=== PATIENT | male | born 1955 | race Caucasian/White ===

== ENCOUNTER → 2019-10-20 16:08 | Outpatient (CLI) | payer OTHER, SELFPAY ==
[2019-10-20 17:52] LABS: Anion Gap 3 (5-15); BUN 34 mg/dL (7-18); BUN/Creat Ratio 32.7 RATIO (10-20); Calcium,Total 8.9 mg/dL (8.5-10.1); Chloride 105 mmol/L (98-107); Creatinine, Serum 1.04 mg/dL (0.70-1.30); EST Glomerular Filtration Rate 76 mL/min (>60); Est Glom Filt Rate - Afr Amer 92 mL/min (>60); Glucose 87 mg/dL (74-106); Magnesium 2.2 mg/dL (1.6-2.6); Potassium 4.3 mmol/L (3.5-5.1); Sodium Level 138 mmol/L (136-145)
== END ==
DX: I50.32 Chronic diastolic (congestive) heart failure (principal)
CPT/HCPCS: 36415; 80048; 83735

== ENCOUNTER → 2019-10-29 15:12 | Outpatient (CLI) | payer OTHER, SELFPAY ==
[2019-10-29 16:12] LABS: Hematocrit 51.3 % (40-54); Hemoglobin 16.3 g/dL (13.0-16.5); Mean Corp Hgb Conc 31.8 g/dL (32-36); Mean Corpuscular Hgb 29.8 pg (27.0-32.0); Mean Corpuscular Volume 93.8 fL (80-94); Mean Platelet Vol. 10.5 fl (6.2-12.0); Platelet Count 266 K/mm3 (150-450); RBC Distribution Width CV 13.3 % (11.6-14.6); RBC Distribution Width SD 46.5 fl (35.1-43.9); Red Blood Count 5.47 M/mm3 (4.6-6.2)
== END ==
DX: I50.32 Chronic diastolic (congestive) heart failure (principal)
CPT/HCPCS: 36415; 85027

== ENCOUNTER 2020-09-21 09:01 | Emergency (ER) | payer MEDICARE, SELFPAY ==
[2020-09-21 09:01] VITALS: BP 143/77; PULSE 81; RESP 15; TEMP 35.9; O2SAT 97
--- NOTE | 2020-09-21 09:34 | EKG12_ITS ---
Test Reason : HYPERTENSION Blood Pressure : / mmHG Vent. Rate : 075 BPM Atrial Rate : 075 BPM P-R Int : 200 ms QRS Dur : 126 ms QT Int : 424 ms P-R-T Axes : 063 -47 065 degrees QTc Int : 473 ms Normal sinus rhythm Left axis deviation Non-specific intra-ventricular conduction block Cannot rule out Septal infarct , age undetermined Inferior infarct , age undetermined Abnormal ECG Confirmed by TEJINDER AGUILAR, PAOLA ([id number]), editorial writer ARNAV CABRERA ([id number]) on 09/27/2020 9:18:59 AM Referred By: CRICKET Confirmed By:KEKE MARR MD
--- NOTE | 2020-09-21 09:35 | ED.VIS.GEN ---
History of Present Illness Chief Complaint: Hypertension Informant: Patient Onset: Today Narrative: 65-year-old male presenting with feeling of general weakness which started today after his walk. He states he was diagnosed with high blood pressure and was on 2 medications he was able to get down to just metoprolol daily because he walks a lot. He states his blood pressures are normally in the 120s/70s range. Patient states his blood pressure was was 140/85 today. He states his heart rate is usually in the 50s but today it was in the 80s. He states he feels weak as a kitten. Patient denies fever, chills, cough, shortness of breath, myalgias, loss of taste or smell, chest pain, palpitations. He has only left the house 7 times in the last 6 months. He has no sick contacts. Past Medical History Primary Care Physician: Care Physician,No Primary [NON-STAFF] - Prior records reviewed: Yes Past Medical History: - - Hypertension, pacemaker defibrillator Lives: Spouse/ Significant Other Smoking Status: Never smoker Alcohol: None Drugs: None Review of Systems General: Reports: - - Feeling of generalized weakness. Denies: Chills, Fever, Sweats Eyes: Denies: Visual changes - bilaterally, Diplopia ENT: Denies: Rhinorrhea, Sore throat Cardiovascular: Denies: Chest pain, Palpitations Respiratory: Denies: Dyspnea, Cough, Dyspnea on exertion Gastrointestinal: Denies: Abdominal pain, Nausea, Vomiting, Diarrhea, Melena, Hematochezia Genitourinary: Denies: Dysuria, Hematuria, Frequency Musculoskeletal: Denies: Back pain, Extremity Pain Skin: Denies: Rash, Wounds Neurological: Reports: - - Dizziness resolved. Denies: Headache Psych: Denies: Depression, Anxiety Physical Exam Vital Signs/Narrative: Vital Signs Temp Pulse Resp BP Pulse Ox 09/21/20 09:01 96.7 F L 81 15 143/77 H 97 General: Well nourished, Well developed, No Acute Distress Head: Normocephalic, Atraumatic Eyes: Perrl, EOMI ENT: Moist mucous membranes, No rhinorrhea Cardiovascular: Regular rate, Regular rhythm Respiratory: No distress, CTA bilaterally, Chest nontender Extremities: Nontender, No edema Skin: Normal color, No rash Neurological: Alert, Oriented x3 Psychological: Normal affect, Normal Mood Diagnostic/Tx/Re-eval - Rhythm Strip Rhythm Strip: Sinus Rhythm Rate: 58 - EKG Initial EKG Interpretation: Sinus Rhythm, No Acute Injury Pattern - Medical Decision Making 65-year-old male presenting initially because of concern about his blood pressure however his blood pressure appears to be normal. His heart rate and blood pressure appear to be fairly normal. Given his concern I did check lab work. EKG performed on arrival shows sinus rhythm at 75 bpm as interpreted by myself. Chest x-ray as read by the radiologist and myself shows no acute process. Lab work shows a leukocytosis of 20,000. Patient is slightly dehydrated and was given IV fluids. Patient's urinalysis is consistent with UTI. I will send this for culture. Patient will be started on Keflex with the first dose in the ED. Even though his white blood cell count is high patient's vitals are normal and he feels well enough to go home. He was given return precautions. He stable for discharge at this time. Impression: 1. UTI 2. Generalized weakness 3. Leukocytosis ED Disposition - Plan for ED Patient: Disposition: Home or Assisted Living Instructions: ED Bladder Infection, Male (Adult) Prescriptions: Cephalexin [Keflex] 500 mg PO Q12 #14 cap Prescription Printed Referrals: Care Physician,No Primary [NON-STAFF] -
--- NOTE | 2020-09-21 09:40 | RAD_ITS ---
STUDY: X-RAY CHEST REASON FOR EXAM: Male, 65 years old. CHEST PAIN TECHNIQUE: Single AP portable view of the chest. COMPARISON: None. FINDINGS: The lungs are clear and expanded. There is no demonstrated pleural abnormality. Normal size heart. Normal mediastinum and kera. Normal visualized pulmonary arteries. There is atherosclerotic tortuosity of the aortic arch and descending thoracic aorta. Normal visualized thoracic spine. Normal visualized ribs, clavicles, and shoulders. There is no demonstrated abnormality of the visualized soft tissue structures of the upper abdomen. RAD/Chest 1 View (Portable) IMPRESSION: Normal x-ray examination of the chest. Electronically Signed: Sina Reeder MD at 10:04 EST Tel , Service support ,
--- NOTE | 2020-09-21 09:49 | NURSING ---
NO OLD EKGS
[2020-09-21] MEDS: Aspirin 81 MG TAB.CHEW 324 MG PO (09:54)
[2020-09-21 09:58] LABS: Absolute Lymphocyte Count 0.95 X10^3/uL (0.83-4.51); Absolute Neutrophil Count 18.3 X10^3/uL (2.0-7.7); Basophil# 0.03 X10^3/uL; Basophil% 0.1 % (0-1); Eosinophil# 0.01 X10^3/uL; Hematocrit 47.1 % (40-54); Hemoglobin 15.2 g/dL (13.0-16.5); Lymphocyte # 0.95 X10^3/ul (4.0); Lymphocyte % 4.6 % (19-41); Mean Corp Hgb Conc 32.3 g/dL (32-36); Mean Corpuscular Hgb 30.6 pg (27.0-32.0); Mean Corpuscular Volume 94.8 fL (80-94); Mean Platelet Vol. 10.4 fl (6.2-12.0); Monocyte# 1.33 X10^3/uL; Monocyte% 6.4 % (0-10); NRBC Flagged by Analyzer 0 % (0-5); Neutrophil # 18.34 X10^3/uL (2.7-7.7); Neutrophil % 88.4 % (47-70); Platelet Count 223 K/mm3 (150-450); RBC Distribution Width CV 13.2 % (11.6-14.6); RBC Distribution Width SD 45.6 fl (35.1-43.9); Red Blood Count 4.97 M/mm3 (4.6-6.2); White Blood Count 20.8 K/mm3 (4.4-11.0)
[2020-09-21 10:15] LABS: Anion Gap 4 (5-15); BUN 19 mg/dL (7-18); BUN/Creat Ratio 19.3 RATIO (10-20); Calcium,Total 8.6 mg/dL (8.5-10.1); Chloride 106 mmol/L (98-107); Creatinine, Serum 0.98 mg/dL (0.70-1.30); EST Glomerular Filtration Rate 81 mL/min (>60); Est Glom Filt Rate - Afr Amer 98 mL/min (>60); Estimated Creatinine Clearance 92.76 ml/min; Glucose 99 mg/dL (74-106); Potassium 3.9 mmol/L (3.5-5.1); Sodium Level 139 mmol/L (136-145)
[2020-09-21 10:27] LABS: Mucous, Urine 0 SEEN /hpf (<or=2+); Squamous Epithelial Cells - UA 0 SEEN /hpf (0-5)
[2020-09-21 10:29] LABS: Color, Urine Yellow (Yellow); Glucose, Dipstick Normal (Normal); Ketone-Dipstick Negative (Negative); Leukocyte Esterase-Dipstick 500 /ul (Negative); Nitrite-Dipstick Positive (Negative); Occult Blood-Urine 10 /ul (Negative); Protein-Dipstick Negative (Negative); Urine Bilirubin Dipstick Negative (Negative); Urine Clarity Cloudy (Clear); Urine Urobilinogen 1 mg/dl (Normal); Urine pH 6.5 (5.0 - 8.0)
[2020-09-21 10:36] LABS: Bacteria 3+ /hpf (None Seen); Red Blood Cells-Urine 0-5 SEEN /hpf (0-5); White Blood Cells 25-50 SEEN /hpf (0-5)
[2020-09-21 11:06] VITALS: BP 123/68; PULSE 65; RESP 14; O2SAT 96
[2020-09-21] MEDS: Cephalexin 250 MG Capsule 500 MG PO (11:14)
== END 2020-09-21 11:15 | disposition home or self-care (01) ==
PROVIDERS: Emergency Provider Student in an Organized Health Care Education/Training Program
DX: N39.0 Urinary tract infection, site not specified (principal); R53.1 Weakness; D72.829 Elevated white blood cell count, unspecified; E86.0 Dehydration; I10 Essential (primary) hypertension; Z95.810 Presence of automatic (implantable) cardiac defibrillator; Z79.899 Other long term (current) drug therapy
CPT/HCPCS: 71045; 80048; 81001; 84484; 85025; 93005; 99285; A4216

== ENCOUNTER → 2021-05-11 10:09 | Outpatient (CLI) | payer MEDICARE, SELFPAY ==
[2021-05-11 12:39] LABS: Absolute Neutrophil Count 4.9 X10^3/uL (2.0-7.7); Basophil# 0.05 X10^3/uL; Basophil% 0.7 % (0-1); Eosinophil# 0.13 X10^3/uL; Eosinophils% 1.8 % (0-5); Hematocrit 46.2 % (40-54); Hemoglobin 15.2 g/dL (13.0-16.5); Lymphocyte % 22.1 % (19-41); Mean Corp Hgb Conc 32.9 g/dL (32-36); Mean Corpuscular Hgb 30.5 pg (27.0-32.0); Mean Corpuscular Volume 92.8 fL (80-94); Mean Platelet Vol. 10.8 fl (6.2-12.0); Monocyte# 0.59 X10^3/uL; Monocyte% 8.1 % (0-10); NRBC Flagged by Analyzer 0 % (0-5); Neutrophil # 4.85 X10^3/uL (2.7-7.7); Neutrophil % 66.9 % (47-70); Platelet Count 242 K/mm3 (150-450); RBC Distribution Width CV 13.5 % (11.6-14.6); RBC Distribution Width SD 46.2 fl (35.1-43.9); Red Blood Count 4.98 M/mm3 (4.6-6.2); White Blood Count 7.3 K/mm3 (4.4-11.0)
[2021-05-11 12:58] LABS: AST(SGOT) 39 U/L (15-37); Alanine Aminotransfer ALT/SGPT 62 U/L (16-61); Albumin, Serum 3.4 g/dL (3.2-5.0); Alkaline Phosphatase 94 U/L (45-117); Anion Gap 7 (5-15); BUN 22 mg/dL (7-18); BUN/Creat Ratio 23.9 RATIO (10-20); Bilirubin, Direct 0.15 mg/dL (0.00-0.30); Calcium,Total 8.2 mg/dL (8.5-10.1); Chloride 104 mmol/L (98-107); Cholesterol 128 mg/dL (200); Creatinine, Serum 0.92 mg/dL (0.70-1.30); EST Glomerular Filtration Rate 87 mL/min (>60); Est Glom Filt Rate - Afr Amer 106 mL/min (>60); Globulin 3.1 g/dL (2.2-4.2); Glucose 91 mg/dL (74-106); High Density Lipoprotein 47 mg/dL; PSA,Total - Annual Screen 2.42 ng/mL (0.00-4.00); Potassium 4.2 mmol/L (3.5-5.1); Protein, Total 6.5 g/dL (6.4-8.2); Sodium Level 138 mmol/L (136-145); Thyroid Stim Hormone (TSH) 3.83 uIU/mL (0.358-3.74); Triglycerides 87 mg/dL; Very Low Density Lipoprotein 17 mg/dL (5-40)
== END ==
PROVIDERS: PCP Family Medicine; Referring Provider Family Medicine; Visit Provider Family Medicine
DX: I10 Essential (primary) hypertension (principal); E78.5 Hyperlipidemia, unspecified; I49.9 Cardiac arrhythmia, unspecified; N40.1 Benign prostatic hyperplasia with lower urinary tract symptoms; Z12.31 Encounter for screening mammogram for malignant neoplasm of breast; Z12.5 Encounter for screening for malignant neoplasm of prostate
CPT/HCPCS: 36415; 80048; 80061; 80076; 84153; 84443; 85025; G0103

== ENCOUNTER 2021-08-04 21:09 | Inpatient (IN) | payer MEDICARE, SELFPAY ==
[2021-08-04 21:10] VITALS: BP 148/63; PULSE 64; RESP 16; TEMP 36.4; O2SAT 100; BMI 26.7
[2021-08-04 21:35] VITALS: BP 148/63; PULSE 64; RESP 16; TEMP 36.4; O2SAT 100
--- NOTE | 2021-08-04 21:35 | RAD_ITS ---
STUDY: X-RAY - LEFT FOOT CLINICAL: Male, 66 years old. Dorsal wound, swelling, pain. TECHNIQUE: 3 view(s) of the foot. COMPARISON: None. FINDINGS: Cortical spurring is present at the bases of the metatarsal bones. Mild soft tissue swelling is present over the dorsum of the foot. No visualized acute fracture. The DIP joints of the second through fifth digits are moderately narrowed. Normal talus, calcaneus, and tarsal bones. Normal visualized subtalar, talonavicular, calcaneocuboid, tarsal and tarsometatarsal articulations. Normal metatarsi. Normal metatarsophalangeal joint of the great toe. Normal tibial and fibular sesamoid bones. Normal interphalangeal joint of the great toe. Normal phalanges of the great toe. The Achilles tendon is markedly thickened. Ossification is seen in the proximal aspect of the Achilles tendon. RAD/Foot min 3 Views IMPRESSION: 1. Mild soft tissue swelling. Degenerative changes. Electronically Signed: Cem Cortez MD at 22:39 EST , Service support ,
--- NOTE | 2021-08-04 21:36 | EX.ED.DYSGE1 ---
HPI History of Present Illness Chief Complaint: Cellulitis Informant: patient Onset/Context/Timing Onset: Weeks Context: Gradual Onset Timing: Continuous Current Severity: Mild Maximum Severity: Mild Narrative Narrative: 66-year-old male history of prior MIs with renal insufficiency. States about 1-1/2 weeks ago he developed sore the top of his left foot he was seen on Sunday by his primary care physician in [place] who gave him IM injections of antibiotic and patient on Bactrim twice a day. He states that she is getting worse with more swelling and now discomfort. Prior similar symptoms: No Recent Illness/Hospitalization: No [facility] Medical History Myocardial infarct Home Medications amiodarone 200 mg PO BID 09/21/20 [History Last Taken Unknown] cephalexin 500 mg PO Q12 #14 cap 09/21/20 [Rx Last Taken Unknown] fluticasone propionate 1 spray INHALATION DAILY 09/21/20 [History Last Taken Unknown] metoprolol succinate 25 mg PO DAILY 09/21/20 [History Last Taken Unknown] pravastatin 40 mg PO DAILY 09/21/20 [History Last Taken Unknown] quetiapine 200 mg PO DAILY 09/21/20 [History Last Taken Unknown] tamsulosin 0.4 mg PO BID 09/21/20 [History Last Taken Unknown] Allergy/AdvReac Type Severity Reaction Status Date / Time No Known Allergies Allergy Verified 08/04/21 21:12 Social History Smoking Status: Never smoker ROS ROS ED ROS Narrative Denies recent illness. Review of Systems ROS Unobtainable: Denies due to encephalopathy Constitutional Constitutional ED: Denies fever(s) Eyes Eyes: Denies change in vision ENT ENT ED: Denies ear pain Cardiovascular Cardiovascular: Denies chest pain Respiratory/Chest Respiratory/Chest: Denies dyspnea Gastrointestinal Gastrointestinal: Denies abdominal pain Genitourinary Genitourinary ED: Denies dysuria Musculoskeletal Musculoskeletal: Denies myalgias Integumentary Denies rash Neurologic Neurologic: Denies headache(s) Psychiatric Psychiatric: Denies depression Endocrine Endocrinology: Denies polyuria Allergic/Immunologic Allergic/Immunologic ED: Denies urticaria EXAM Physical Exam Narrative Exam Narrative: Six 6-year-old male no acute distress vital signs stable afebrile. Lungs are clear. Heart regular rhythm. Abdomen soft nontender. Top of his left foot there is a wound is swollen and tender there is swelling of his foot also to his lower leg. There is no lymphangitic streaking. There is no left inguinal lymphadenopathy. He has normal range of motion to his left hip, knee, ankle and foot. He can dorsi plantarflex his foot. There is obvious cellulitis on the top of his foot. No gas. Const Vital Signs: 08/04/21 21:10 08/04/21 21:35 Temperature 97.5 F L 97.5 F L Temperature Source Temporal Temporal Pulse Rate 64 64 Respiratory Rate 16 16 Blood Pressure 148/63 H 148/63 H Blood Pressure Mean 91 91 Pulse Ox 100 100 Oxygen Delivery Method Room Air Room Air Positive well nourished and well developed; Negative for obese, cachectic, contractures or unkempt General Appearance ED: well developed and NAD; Negative for unkempt, cachectic or contractures Nutritional Appearance: Negative for cachectic or obese HEENT Reports moist mucous membranes Negative for trauma or tenderness Eyes PERRL and EOMs intact bilaterally Neck no lymphadenopathy, supple and no JVD General: Negative for tenderness Chest Wall inspection of chest normal; Negative for palpation of chest normal Resp normal respiratory effort and clear to auscultation bilaterally Auscultation: Negative for rales, rhonchi or diminished lung sounds Psych Appearance: Negative for unkempt MDM MDM MDM Narrative Medical decision making narrative: 66-year-old male failed outpatient antibiotic therapy for left foot cellulitis. He will be started on IV Unasyn screening labs x-ray will be obtained I will speak to the hospitalist about admission. Repeat exam patient is doing well at 10:25 PM. I spoken to the hospitalist he will be admitted. Lab Data Attestation: I reviewed the patient's lab results. Lab results narrative: CBC unremarkable white count 8. Hemoglobin 15. No bands. Chemistries unremarkable glucose of 92 normal BUN and creatinine. Normal gap. Labs: Laboratory Results - last 24 hr 08/04/21 08/04/21 21:46 21:46 WBC 8.3 RBC 5.30 Hgb 15.9 Hct 48.5 MCV 91.5 MCH 30.0 MCHC 32.8 RDW Std Deviation 44.3 H RDW Coeff of Aydin 13.2 Plt Count 267 MPV 10.0 Immature Gran % (Auto) 0.700 Neut % (Auto) 60.3 Lymph % (Auto) 25.6 [place] % (Auto) 9.2 Eos % (Auto) 3.6 Baso % (Auto) 0.6 Absolute Neuts (auto) 5.0 Absolute Lymphs (auto) 2.13 Nucleated RBC % 0 Sodium 138 Potassium 4.0 Chloride 105 Carbon Dioxide 27.0 Anion Gap 6 BUN 21 H Creatinine 1.07 Estim Creat Clear Calc 80.07 Est GFR (MDRD) Af Amer 89 Est GFR (MDRD) Non-Af 73 BUN/Creatinine Ratio 19.6 Glucose 92 Calcium 8.7 Radiography Diagnostic Testing: Left foot x-ray 3 views interpreted by myself shows no acute abnormality other than soft tissue swelling. No bony abnormality. No subcu air. Discharge Plan Dx/Rx/DC Orders Clinical Impression: Cellulitis of left foot Disposition Disposition: Acute Care Hospital [facility]
[2021-08-04 21:54] LABS: Absolute Lymphocyte Count 2.13 X10^3/uL (0.83-4.51); Basophil# 0.05 X10^3/uL; Basophil% 0.6 % (0-1); Eosinophils% 3.6 % (0-5); Hematocrit 48.5 % (40-54); Hemoglobin 15.9 g/dL (13.0-16.5); Lymphocyte # 2.13 X10^3/ul (0.83-4.51); Lymphocyte % 25.6 % (19-41); Mean Corp Hgb Conc 32.8 g/dL (32-36); Mean Corpuscular Volume 91.5 fL (80-94); Monocyte# 0.77 X10^3/uL; Monocyte% 9.2 % (0-10); NRBC Flagged by Analyzer 0 % (0-5); Neutrophil # 5.02 X10^3/uL (2.7-7.7); Neutrophil % 60.3 % (47-70); Platelet Count 267 K/mm3 (150-450); RBC Distribution Width CV 13.2 % (11.6-14.6); RBC Distribution Width SD 44.3 fl (35.1-43.9); White Blood Count 8.3 K/mm3 (4.4-11.0)
[2021-08-04 22:06] LABS: Anion Gap 6 (5-15); BUN 21 mg/dL (7-18); BUN/Creat Ratio 19.6 RATIO (10-20); Calcium,Total 8.7 mg/dL (8.5-10.1); Chloride 105 mmol/L (98-107); Creatinine, Serum 1.07 mg/dL (0.70-1.30); EST Glomerular Filtration Rate 73 mL/min (>60); Est Glom Filt Rate - Afr Amer 89 mL/min (>60); Estimated Creatinine Clearance 80.07 ml/min; Glucose 92 mg/dL (74-106); Sodium Level 138 mmol/L (136-145)
--- NOTE | 2021-08-04 22:41 | HP.PCM.HOS_ITS ---
[facility] - General General Date of Admission: 08/04/21 HPI Narrative BONYN VARGHESE, is a 66 M with a significant history of heart failure with reduced ejection fraction; and ventricular tachycardia who presents to the emergency department with 1-1/2-week history of progressively worsening left foot. Also he saw an ulcer on the dorsal side of his left foot. On 07/01/2021 patient saw his PCP because of the symptoms of his left foot and was given to IM shots in his buttocks. He was then placed on Bactrim. He reported that while on Bactrim the swelling of his left foot progressed to his left ankle. He denies pain at rest except tenderness when he pressed on his left foot. He report that with walking he has pain in his left foot. He denies any fever, chills or anorexia. He reports that previously his ejection fraction was 35% but in the past 3 months his ejection fraction has been 55% and he was taken off Eliquis. He had a pacemaker with a defibrillator but because the pacemaker defibrillator got infected it was extracted out. [facility] Medical History Myocardial infarct Home Medications amiodarone 200 mg PO BID 09/21/20 [History Last Taken Unknown] cephalexin 500 mg PO Q12 #14 cap 09/21/20 [Rx Last Taken Unknown] fluticasone propionate 1 spray INHALATION DAILY 09/21/20 [History Last Taken Unknown] metoprolol succinate 25 mg PO DAILY 09/21/20 [History Last Taken Unknown] pravastatin 40 mg PO DAILY 09/21/20 [History Last Taken Unknown] quetiapine 200 mg PO DAILY 09/21/20 [History Last Taken Unknown] tamsulosin 0.4 mg PO BID 09/21/20 [History Last Taken Unknown] Allergy/AdvReac Type Severity Reaction Status Date / Time No Known Allergies Allergy Verified 08/04/21 23:15 Family History Other Diabetes TIA (transient ischemic attack) Surgical History History of hip surgery History of permanent cardiac pacemaker placement Social History Smoking Status: Never smoker ROS ROS Narrative Constitutional: Denies fever, chills, fatigue, anorexia and change in weight Eyes: Denies blurry vision, change in eye color, change in vision, discharge from eye(s), double vision, erythema, eye pain, loss of vision or other HEENT: Denies abnormal hearing, dysphagia, ear pain, epistaxis, headache(s), hearing loss, nasal congestion, nasal discharge, post nasal drip, sinus pr essure, sore throat or other Cardiovascular: Denies chest pain or palpitations. Denies dyspnea on exertion, orthopnea and paroxysmal nocturnal dyspnea Respiratory/Chest: Denies cough, excessive phlegm production, shortness of breath with exertion and wheezing Gastrointestinal: Denies abdominal pain, coffee ground emesis, constipation, diarrhea, dyspepsia, hematemesis, hematochezia, loose stools, melena, nausea, vomiting or other Genitourinary: Denies burning urination, difficulty urinating, dysuria, hematuria, nocturia, urinary frequency, urinary hesitancy, urinary incontinence, urinary urgency or other Musculoskeletal: Left foot swelling, erythema and tenderness. Neurologic: Denies abnormal gait, abnormal speech, confusion, disequilibrium, dizziness, focal weakness, headache(s), numbness, paresthesias, seizure-like activity, seizures, syncope, tingling, tremor(s) or other Psychiatric: Denies anxiety, depression, homicidal ideation, suicidal ideation or other Endocrinology: Denies change in body appearance, cold intolerance, excessive sweating, heat intolerance, polydipsia, polyuria or other Hematologic/Lymphatic: Denies anemia, easy bleeding, easy bruising, lymphadenopa thy or other Integumentary: Ulcer of left foot. Allergic/Immunologic: Denies rhinitis, hives, eczema, asthma or other Vital Signs Vital Signs Vital Signs: 08/04/21 21:10 08/04/21 21:35 Temperature 97.5 F L 97.5 F L Temperature Source Temporal Temporal Pulse Rate 64 64 Respiratory Rate 16 16 Blood Pressure 148/63 H 148/63 H Blood Pressure Mean 91 91 Pulse Ox 100 100 Oxygen Delivery Method Room Air Room Air Weight Weight: 97 kg Body Mass Index (BMI) 26.7 Physical Exam Narrative Physical exam: General: Well-nourished, well-developed. Head: Normocephalic, atraumatic, no tenderness Eyes: PERRLA, EOMI ENT, no trauma, moist mucous membranes, no rhinorrhea Neck: Nontender, full range of motion, no spinal tenderness, deformities, step- off CVS: Regular rate and rhythm. S1-S2 present. No murmur, gallop or rub. Respiratory : clear to auscultation bilaterally, chest wall nontender, no wheez ing Abdomen: Soft, nontender, nondistended, normal bowel sounds, no masses : Deferred Back: Nontender, no CVA tenderness, no midline spinal tenderness, deformities, step-offs Extremities: Left foot swelling; erythema of left foot; tenderness of left foot. Ulcer on dorsum of left foot. Skin: Normal color, no trauma, abrasions Neuro: Alert, oriented, cranial nerves II through XII grossly intact. Psychiatry: Normal mood. Normal affect. Not depressed. Not anxious. Results Lab / Micro Data Result Diagrams: 08/04/21 21:46 08/04/21 21:46 Labs: Laboratory Results - last 24 hr 08/04/21 21:46: WBC 8.3, RBC 5.30, Hgb 15.9, Hct 48.5, MCV 91.5, MCH 30.0, MCHC 32.8, RDW Std Deviation 44.3 H, RDW Coeff of Aydin 13.2, Plt Count 267, MPV 10.0, Immature Gran % (Auto) 0.700, Neut % (Auto) 60.3, Lymph % (Auto) 25.6, [place] % (Auto) 9.2, Eos % (Auto) 3.6, Baso % (Auto) 0.6, Absolute Neuts (auto) 5.0, Absolute Lymphs (auto) 2.13, Nucleated RBC % 0 08/04/21 21:46: Sodium 138, Potassium 4.0, Chloride 105, Carbon Dioxide 27.0, Anion Gap 6, BUN 21 H, Creatinine 1.07, Estim Creat Clear Calc 80.07, Est GFR (MDRD) Af Amer 89, Est GFR (MDRD) Non-Af 73, BUN/Creatinine Ratio 19.6, Glucose 92, Calcium 8.7 Radiology Impression Foot X-Ray 08/04/21 21:35 IMPRESSION: 1. Mild soft tissue swelling. Degenerative changes. Electronically Signed: Cem Cortez MD at 22:39 EST , Service support , Assessment & Plan Assessment/Plan (1) Cellulitis of left foot: PLAN: Cellulitis of foot Foot x-ray was independently interpreted and I agree with radiologist interpretation. Review of CBC showed white count of 8.3. Will get ESR and CRP. Started on Unasyn at the emergency department and continued. Will add clindamycin. Will consult podiatry. Will trend CBC and BMP. Heart failure with reduced ejection fraction (now improved) Stable. Metoprolol continued. Reports history of CKD. Likely reason for patient not being on CUATE inhibitor. Ventricular tachycardia Amiodarone continued. Hypertension Blood pressure is not within goal Metoprolol continued. Trend blood pressure and adjust blood pressure medications. BPH Tamsulosin continued DVT Prophylaxis No chemical thromboprophylaxis as patient may be a surgical candidate. SCD ordered. Charges/Coding Visit Charges Inpatient E&M: 28591 Init Hosp L3
[2021-08-04 23:00] VITALS: BP 156/75; PULSE 65; RESP 14; TEMP 36.6; O2SAT 96
[2021-08-04 23:01] VITALS: BP 156/75; PULSE 65; RESP 14; TEMP 36.6
--- NOTE | 2021-08-04 23:10 | PCS.PANDOC ---
PANDEMIC DOCUMENTATION INITIATED: Date: 05/09/2021 Time: 1900 Emergency documentation initiated 08/04/21 @ 2608
[2021-08-04 23:25] VITALS: BMI 25.9
[2021-08-04 23:50] VITALS: BP 161/73; PULSE 60; RESP 16; TEMP 36.6; O2SAT 97
[2021-08-05] VITALS (7 sets, daily range): BP systolic 129–161; BP diastolic 69–84; PULSE 50–64; RESP 16–18; TEMP 36.4–36.6; O2SAT 95–96
[2021-08-05 00:19] LABS: Erythrocyte Sedimentation Rate 7 mm/hr (0-20)
[2021-08-05 00:27] LABS: CRP < 2.90 mg/L (0.0-3.0)
[2021-08-05] MEDS: Tamsulosin HCl 0.4 MG Capsule PO ×3 (00:32→22:09)
[2021-08-05] MEDS: Metoprolol(XL)Succ 25 MG Tablet 12.5 MG PO (00:32)
[2021-08-05] MEDS: Amiodarone 200 MG Tablet PO ×3 (00:32→22:09)
[2021-08-05] MEDS: MELATONIN 3 MG TABLET PO (00:33)
[2021-08-05] MEDS: QUEtiapine 100 MG Tablet PO ×2 (00:45→22:09)
[2021-08-05 07:05] LABS: Absolute Lymphocyte Count 1.64 X10^3/uL (0.83-4.51); Absolute Neutrophil Count 3.5 X10^3/uL (2.0-7.7); Basophil# 0.04 X10^3/uL; Basophil% 0.7 % (0-1); Eosinophil# 0.25 X10^3/uL; Eosinophils% 4.1 % (0-5); Hematocrit 43.6 % (40-54); Hemoglobin 14.4 g/dL (13.0-16.5); Lymphocyte # 1.64 X10^3/ul (0.83-4.51); Lymphocyte % 26.9 % (19-41); Mean Corpuscular Hgb 30.3 pg (27.0-32.0); Mean Corpuscular Volume 91.6 fL (80-94); Mean Platelet Vol. 10.2 fl (6.2-12.0); Monocyte# 0.65 X10^3/uL; Monocyte% 10.7 % (0-10); NRBC Flagged by Analyzer 0 % (0-5); Neutrophil # 3.47 X10^3/uL (2.7-7.7); Neutrophil % 56.8 % (47-70); Platelet Count 232 K/mm3 (150-450); RBC Distribution Width CV 13.2 % (11.6-14.6); RBC Distribution Width SD 44.5 fl (35.1-43.9); Red Blood Count 4.76 M/mm3 (4.6-6.2); White Blood Count 6.1 K/mm3 (4.4-11.0)
[2021-08-05 07:19] LABS: Anion Gap 5 (5-15); BUN 17 mg/dL (7-18); BUN/Creat Ratio 17.9 RATIO (10-20); Calcium,Total 8.2 mg/dL (8.5-10.1); Chloride 109 mmol/L (98-107); Creatinine, Serum 0.95 mg/dL (0.70-1.30); EST Glomerular Filtration Rate 84 mL/min (>60); Est Glom Filt Rate - Afr Amer 102 mL/min (>60); Estimated Creatinine Clearance 90.18 ml/min; Glucose 85 mg/dL (74-106); Potassium 3.8 mmol/L (3.5-5.1); Sodium Level 140 mmol/L (136-145)
--- NOTE | 2021-08-05 07:40 | PCM.CONS.GEN ---
Assessment & Plan Assessment/Plan (1) Infected hematoma: (2) Cellulitis of left foot: PLAN: Evaluation performed. Reviewed diagnostic data. There is noted to be a wound to the dorsal foot, which was debrided as noted below. There was noted to be a small hematoma present to the site. A culture was obtained and sent to microbiology. Site was packed with gauze packing, overlying gauze and rupert dressing applied. Patient is on antibiotic therapy at this time - Unasyn and Clindamycin. Podiatry will continue to follow, thank you for the consult. Wound debridement left foot - After consent was obtained the wound to the dorsal central foot was debrided using a 10 blade in excisional fashion removing the nonviable tissue, post debridement wound measured 0.4cm x 1cm and 0.4cm in depth, there was noted to be hematoma to the base of the wound which was evacuated from the site with side to side compression. Hemostasis was achieved with gauze and pressure. No anesthesia was needed, the patient did have some pain temporally, but was able to tolerate it well. The site was packed with gauze and overlying gauze and rupert dressing was applied. HPI Consult Data Date of Consult: 08/05/21 HPI Narrative Reason for Consultation: Left foot infection HPI Narrative: BONNY VARGHESE, is a 66 M who presents with left foot infection. He denies any known injury to the site. He was on antibiotics as outpt but the condition worsened, so he presented to ER and he was admitted for IV antibiotics. He relates foot is looking better today. He is resting comfortably in bed. He has no other complaints. He is afebrile, WBC normal. Xrays with no acute findings. [facility] Medical History Atrial fibrillation Hearing loss, left Hearing loss, right Hypertension Myocardial infarct Non-smoker Home Medications amiodarone 200 mg PO BID 09/21/20 [History Last Taken 08/04/21] fluticasone propionate 1 spray INHALATION DAILY 09/21/20 [History Last Taken 08/03/21] metoprolol succinate 25 mg PO DAILY 09/21/20 [History Last Taken 08/04/21] pravastatin 40 mg PO DAILY 09/21/20 [History Last Taken 08/03/21] quetiapine 200 mg PO QHS 09/21/20 [History Last Taken 08/03/21] tamsulosin 0.4 mg PO BID 09/21/20 [History Last Taken 08/03/21] aspirin 81 mg PO DAILY 08/04/21 [History Last Taken 08/04/21] cephalexin 500 mg PO Q12 08/04/21 [History Last Taken 08/04/21] metoprolol succinate 12.5 mg PO QHS 08/04/21 [History Last Taken 08/03/21] Allergy/AdvReac Type Severity Reaction Status Date / Time No Known Allergies Allergy Verified 08/04/21 23:15 Family History Other Diabetes TIA (transient ischemic attack) Surgical History History of hip surgery History of permanent cardiac pacemaker placement Social History Smoking Status: Never smoker Physical Exam Const alert, oriented x3 and no apparent distress Extremity Extremity Narrative: There is noted to be an open wound to the dorsal central foot down to subcutaneous tissue which is slightly fluctuant, there was noted to be nonviable tissue present to the wound site - it measures 0.3cm x 0.9cm down to subcutaneous tissue layer prior to debridement, no probe to bone. There is some cellulitis to the foot with some edema, there is noted to be POP to the site, there is no other open wounds or area of pain, no leg edema; left. No wounds to the right foot or areas of infection to the right foot. Sensation is intact bilateral foot. Calf is soft and supple bilateral. No gross instability to the foot or ankle bilateral. No evidence of compartment syndrome bilateral. Lab / Micro Data Result Diagrams: 08/05/21 06:36 08/05/21 06:36 Labs: Laboratory Results - last 24 hr 08/04/21 21:46: WBC 8.3, RBC 5.30, Hgb 15.9, Hct 48.5, MCV 91.5, MCH 30.0, MCHC 32.8, RDW Std Deviation 44.3 H, RDW Coeff of Aydin 13.2, Plt Count 267, MPV 10.0, Immature Gran % (Auto) 0.700, Neut % (Auto) 60.3, Lymph % (Auto) 25.6, [place] % (Auto) 9.2, Eos % (Auto) 3.6, Baso % (Auto) 0.6, Absolute Neuts (auto) 5.0, Absolute Lymphs (auto) 2.13, Nucleated RBC % 0 08/04/21 21:46: Sodium 138, Potassium 4.0, Chloride 105, Carbon Dioxide 27.0, Anion Gap 6, BUN 21 H, Creatinine 1.07, Estim Creat Clear Calc 80.07, Est GFR (MDRD) Af Amer 89, Est GFR (MDRD) Non-Af 73, BUN/Creatinine Ratio 19.6, Glucose 92, Calcium 8.7 08/04/21 21:46: ESR 7 08/04/21 21:46: C-React Prot Ext Range < 2.90 08/05/21 06:36: WBC 6.1, RBC 4.76, Hgb 14.4, Hct 43.6, MCV 91.6, MCH 30.3, MCHC 33.0, RDW Std Deviation 44.5 H, RDW Coeff of Aydin 13.2, Plt Count 232, MPV 10.2, Immature Gran % (Auto) 0.800, Neut % (Auto) 56.8, Lymph % (Auto) 26.9, [place] % (Auto) 10.7 H, Eos % (Auto) 4.1, Baso % (Auto) 0.7, Absolute Neuts (auto) 3.5, Absolute Lymphs (auto) 1.64, Nucleated RBC % 0 08/05/21 06:36: Sodium 140, Potassium 3.8, Chloride 109 H, Carbon Dioxide 26.0, Anion Gap 5, BUN 17, Creatinine 0.95, Estim Creat Clear Calc 90.18, Est GFR (MDRD) Af Amer 102, Est GFR (MDRD) Non-Af 84, BUN/Creatinine Ratio 17.9, Glucose 85, Calcium 8.2 L Radiology Impression Foot X-Ray 08/04/21 21:35 IMPRESSION: 1. Mild soft tissue swelling. Degenerative changes. Electronically Signed: Cem Cortez MD at 22:39 EST , Service support ,
[2021-08-05] MEDS: Aspirin 81 MG TAB.CHEW PO (08:01)
[2021-08-05] MEDS: Fluticasone 0.05% 1 SPRAY NASAL.SRY NASAL (09:46)
[2021-08-05] MEDS: Metoprolol(XL)Succ 25 MG Tablet PO (09:47)
--- NOTE | 2021-08-05 09:53 | WOUNDNOTE ---
wound photo: left dorsal foot
[2021-08-05 11:14] LABS: M R Staph aureus DNA By PCR Negative (Negative); Probe Check PASS; Specimen Processing Control PASS; Staph aureus DNA By PCR NEGATIVE (Negative)
--- NOTE | 2021-08-05 12:15 | CASEMGMT ---
RN CM ROAD FREIGHT CONDUCTOR CM to room to meet with patient for initial transition planning/care coordination assessment. RN KADIE introduced self and role at [facility]. Pt voices understanding and consents to assessment at this time. Pt resting in bed in no distress at this time. Pt is A/O at this time and answers all questions appropriately. Care providers, pharmacy, and demographics verified/updated at this time. PCP: DR Calderon Specialists: Dr Lacy--photographic process screen maker in [place]. Preferred Pharmacy: [facility] Retail Insurance: [employer] MCR Prescription Benefit: Yes Living Will/HPOA: Has both. , Haritha, is POA. LNOK: Living Arrangements: Lives in mobile home w/6 steps to enter. Independent. Walks 3 miles a day. Transportation: DME: Denies using any DME and denies needs. HHC/SNF: No hx of SNF. Has had HHC in the past. Denies need for HHC at this time. Pt wishes to return home and states has no concerns with going home at time of discharge. CM to follow for any discharge planning/needs. Pt voices no concerns/needs at this time. Advised pt to ask for CM if any questions/concerns/needs arise. Voices understanding. PLAN: Home w/spousal support and discharge plans in place. If dsg changes are needed, pt/ are able to do. Dayana PAOLMINO RN, CM
--- NOTE | 2021-08-05 12:16 | PN.HOSP_ITS ---
Documented by User: Orion JAMES 08/05/21 12:25 Subjective Subjective Patient is a 66-year-old male comfortably resting in bed, alert and orient x3. Reports that lower extremity pain has improved from admission, denies development of any new symptoms overnight. Does not appear in acute distress. Objective Data Objective Data Vital Signs: Vital Signs Temp Pulse Resp BP Pulse Ox 97.8 F 64 16 141/84 H 96 08/05/21 07:50 08/05/21 09:47 08/05/21 07:50 08/05/21 07:50 08/05/21 07:50 Oxygen Delivery Method Room Air Weight: 207 lb 0.225 oz Body Mass Index (BMI) 25.9 Intake & Output: Intake and Output for Last 24 Hours 08/03/21 08/04/21 08/05/21 23:59 23:59 23:59 Intake Total 112 / 112 312.25 / 312.25 Balance 112 / 112 312.25 / 312.25 Lab / Micro Data Result Diagrams: 08/05/21 06:36 08/05/21 06:36 Labs: Laboratory Results - last 24 hr 08/04/21 21:46: WBC 8.3, RBC 5.30, Hgb 15.9, Hct 48.5, MCV 91.5, MCH 30.0, MCHC 32.8, RDW Std Deviation 44.3 H, RDW Coeff of Aydin 13.2, Plt Count 267, MPV 10.0, Immature Gran % (Auto) 0.700, Neut % (Auto) 60.3, Lymph % (Auto) 25.6, [place] % (Auto) 9.2, Eos % (Auto) 3.6, Baso % (Auto) 0.6, Absolute Neuts (auto) 5.0, Absolute Lymphs (auto) 2.13, Nucleated RBC % 0 08/04/21 21:46: Sodium 138, Potassium 4.0, Chloride 105, Carbon Dioxide 27.0, Anion Gap 6, BUN 21 H, Creatinine 1.07, Estim Creat Clear Calc 80.07, Est GFR (MDRD) Af Amer 89, Est GFR (MDRD) Non-Af 73, BUN/Creatinine Ratio 19.6, Glucose 92, Calcium 8.7 08/04/21 21:46: ESR 7 08/04/21 21:46: C-React Prot Ext Range < 2.90 08/05/21 06:36: WBC 6.1, RBC 4.76, Hgb 14.4, Hct 43.6, MCV 91.6, MCH 30.3, MCHC 33.0, RDW Std Deviation 44.5 H, RDW Coeff of Aydin 13.2, Plt Count 232, MPV 10.2, Immature Gran % (Auto) 0.800, Neut % (Auto) 56.8, Lymph % (Auto) 26.9, [place] % (Auto) 10.7 H, Eos % (Auto) 4.1, Baso % (Auto) 0.7, Absolute Neuts (auto) 3.5, Absolute Lymphs (auto) 1.64, Nucleated RBC % 0 08/05/21 06:36: Sodium 140, Potassium 3.8, Chloride 109 H, Carbon Dioxide 26.0, Anion Gap 5, BUN 17, Creatinine 0.95, Estim Creat Clear Calc 90.18, Est GFR (MDRD) Af Amer 102, Est GFR (MDRD) Non-Af 84, BUN/Creatinine Ratio 17.9, Glucose 85, Calcium 8.2 L 08/05/21 09:40: S.aureus Protein A PCR NEGATIVE, MRSA (PCR) Negative Radiography Diagnostic Testing: Radiology Impression Foot X-Ray 08/04/21 21:35 IMPRESSION: 1. Mild soft tissue swelling. Degenerative changes. Electronically Signed: Cem Cortez MD at 22:39 EST , Service support , Physical Exam Const alert, oriented x3 and no apparent distress HEENT head/scalp atraumatic, moist oral mucous membranes and oropharynx normal Head and Scalp: normocephalic Eyes PERRL, EOMs intact bilaterally and conjunctivae normal Neck no lymphadenopathy, supple and no JVD Resp normal respiratory effort, no retractions and no use of accessory muscles Cardio regular rate, regular rhythm, no murmurs and no JVD GI normal to inspection, nondistended, normoactive bowel sounds, soft to palpation and non-tender Extremity Extremity Narrative: Left lower extremity is Yobany wrapped appropriately status post debridement. Leg is still swollen although appears improved from admission. Skin skin turgor normal and no jaundice Skin Narrative: See extremity. Neuro CN's II-XII intact bilaterally Psych affect normal Assessment & Plan Assessment/Plan (1) Cellulitis of left foot: PLAN: Day 1 Discharge planning: Current plan is for patient to discharge home. 1) left lower extremity cellulitis Wound was divided by podiatry this morning and is appropriately Yobany wrap. Patient reports that pain and swelling of left lower extremity has improved admission. Denies development of any new symptoms overnight. Does not appear in acute distress. Patient is currently on Unasyn and clindamycin for empiric management, wound cultures pending. Patient will remain admitted until we have speciation and sensitivities due to failing of outpatient management. 2) atrial fibrillation Patient is on amiodarone and metoprolol for rate control. Patient is not anticoagulated. [id number] or is to, moderate to high risk. 3) HTN Stable, continue metoprolol. 4) BPH Continue Flomax. DVT prophylaxis - not indicated. Patient seen by Orion Bustos PA-C, under the supervision of Dr. Henao. Documented by User: Dr. Jeannette Henao DO 08/05/21 17:33 Subjective Subjective This patient was seen in conjunction with ERIKA Mayo. The following is representation my independent history and physical examination. Please see below for addendum the above. Patient reports that he is feeling well. Has been able to walk around the floor without any difficulty. I&D was performed earlier today and he is not really having any pain related to this. He would like to go home tomorrow if able. Objective Data Lab / Micro Data Result Diagrams: 08/05/21 06:36 08/05/21 06:36 Physical Exam Const alert, oriented x3, no apparent distress and average body habitus Constitutional Narrative: Middle-aged white male lying in bed resting comf ortably, nontoxic, very pleasant, appears comfortable Exam Limitations: no limitations HEENT head/scalp atraumatic, moist oral mucous membranes and oropharynx normal Head and Scalp: normocephalic Resp normal respiratory effort, no retractions, no use of accessory muscles and clear to auscultation bilaterally Auscultation: Negative for crackles, rales, rhonchi or wheezes Cardio regular rate, regular rhythm, S1 normal heart sound, S2 normal heart sound, no murmurs, no rub, no gallops, no clicks and no JVD GI normal to inspection, nondistended, normoactive bowel sounds, soft to palpation, non-tender and non-distended Extremity no clubbing, cyanosis or edema Peripheral Pulses: Yes pulses 2+ throughout Skin No no wounds Skin Narrative: Left lower extremity with bandage distal lower extremity status post I&D by podiatry Neuro oriented x3, CN's II-XII intact bilaterally, moves all extremities and no focal motor deficits Sensorium / Orientation: awake and alert Speech: speech normal Motor Exam: strength 5/5 throughout Psych affect normal Assessment & Plan Assessment/Plan (1) Infected hematoma: PLAN: Assessment: Infected hematoma left lower extremity Cellulitis of the left foot PAF Hypertension Hyperlipidemia CAD BPH Compensated HFrEF--> patient was treated with goal-directed therapy and EF has improved from 35% to 55% Plan: -Continue home medications as patient had been on prior to admission other than antibiotics -Podiatry has seen the patient and I&D was performed -There is a small hematoma present at the site and abraded tissue was sent for culture -Site was packed with gauze and dressing applied -We will broaden to Zosyn and discontinue clindamycin -Await cultures and plan for possible discharge in the next 24 to 48 hours Charges/Coding Visit Charges Inpatient E&M: 29404 Subs Hosp L2
[2021-08-05] MEDS: Pravastatin 40 MG Tablet PO (22:10)
[2021-08-06 02:39] VITALS: BP 130/65; PULSE 51; RESP 16; TEMP 36.4; O2SAT 96
[2021-08-06 08:40] VITALS: BP 132/80; PULSE 70; RESP 18; TEMP 36.4; O2SAT 95
[2021-08-06 09:23] VITALS: BP 132/80; PULSE 70
[2021-08-06] MEDS: Amiodarone 200 MG Tablet PO (09:23)
[2021-08-06] MEDS: Aspirin 81 MG TAB.CHEW PO (09:23)
[2021-08-06] MEDS: Metoprolol(XL)Succ 25 MG Tablet PO (09:23)
[2021-08-06] MEDS: Fluticasone 0.05% 1 SPRAY NASAL.SRY NASAL (09:24)
[2021-08-06] MEDS: Tamsulosin HCl 0.4 MG Capsule PO (09:24)
--- NOTE | 2021-08-06 09:25 | DCINST_ITS ---
Discharge Instructions Activity Weight Bearing Status: - (Limit weightbearing on the left foot as much as possible.) Keep extremity elevated above heart level: - (Keep left foot elevated using pillows as much as possible.) Dressing / Incision Call your doctor if your incision/area has: Increased Pain/ Swelling, Increased Redness and Foul Smelling Discharge Call your doctor if you observe: Fever of 101 or Higher, Calf discomfort and Uncontrolled pain Change Dressing in: 1 day (Change left foot dressing every day: Clean wound site on the top of the left foot with normal saline solution, apply betadine (povidone iodine) solution to wound, then gently cover with a gauze and rupert dressing.) Follow Up Care Please Follow Up With: Jovanni Duong DPM When: Follow up with Dr. Duong at the [facility] on Sunday08/09/2021 at 11:45am, follow up sooner if needed. [facility] [address], [place] [address] Office number: [phone] Duong over weekend or after hours: [phone] or [phone] Test Results: Test results from this visit will be discussed in further detail at your follow-up appointment, if applicable. Discharge Plan Admission Admit Date/Time: 08/04/21 22:27 Primary Reason for Your Visit: LLE Cellulitis Attending Provider: Jeannette Henao Primary Care Provider: Sneha Calderon Consulting Providers: Jovanni Duong Discharge Orders/Prescriptions Prescriptions: New povidone-iodine [Betadine Swabsticks] 10 % swab 1 applic topical DAILY Qty: 14 RF: 0 Saline Wound Wash 0.9 % solution 10 - 20 ml miscellaneous DAILY Qty: 210 RF: 0 (DME) gauze bandage 4 X 4 sponge See Rx Instructions .ROUTE .MEDSUPPLY Qty: 1200 RF: 0 (DME) Kerlix 4 1/2 X 147 bandage See Rx Instructions .ROUTE .MEDSUPPLY Qty: 48 RF: 0 (DME) Kerlix 4 1/2 X 147 bandage See Rx Instructions .ROUTE .MEDSUPPLY Qty: 5 RF: 0 (DME) gauze bandage 4 X 4 sponge 2 ea topical DAILY Qty: 30 RF: 0 doxycycline monohydrate 100 mg capsule 100 mg PO BID Qty: 10 RF: 0 Continued pravastatin 40 MG tablet 40 mg PO DAILY RF: 0 amiodarone 200 MG tablet 200 mg PO BID RF: 0 tamsulosin 0.4 MG capsule 0.4 mg PO BID RF: 0 metoprolol succinate 25 MG tablet extended release 24 hr 25 mg PO DAILY RF: 0 fluticasone propionate 16 GM spray,suspension 1 spray INHALATION DAILY RF: 0 quetiapine 200 MG tablet extended release 24 hr 200 mg PO QHS RF: 0 aspirin 81 mg Tablet 81 mg PO DAILY RF: 0 metoprolol succinate 25 mg tablet extended release 24 hr 12.5 mg PO QHS RF: 0 Discontinued cephalexin 500 MG capsule 500 mg PO Q12 RF: 0 Referrals / Follow Up: Sneha Calderon DO [Primary Care Provider] - Within 2 Weeks Jovanni Duong DPM [STAFF PHYSICIAN] - See Referral Note (Follow up with Dr. Duong at the [facility] on Sunday08/09/2021 at 11:45am, follow up sooner if needed.) Disposition Disposition (needs filled in before D/C Order can be placed): Home, Self Care
[2021-08-06 09:38] LABS: Absolute Lymphocyte Count 1.35 X10^3/uL (0.83-4.51); Basophil# 0.03 X10^3/uL; Basophil% 0.4 % (0-1); Eosinophil# 0.21 X10^3/uL; Eosinophils% 2.5 % (0-5); Hematocrit 46.5 % (40-54); Hemoglobin 15.5 g/dL (13.0-16.5); Lymphocyte # 1.35 X10^3/ul (0.83-4.51); Lymphocyte % 16.4 % (19-41); Mean Corp Hgb Conc 33.3 g/dL (32-36); Mean Corpuscular Hgb 30.6 pg (27.0-32.0); Mean Corpuscular Volume 91.7 fL (80-94); Mean Platelet Vol. 10.2 fl (6.2-12.0); Monocyte# 0.65 X10^3/uL; Monocyte% 7.9 % (0-10); NRBC Flagged by Analyzer 0 % (0-5); Neutrophil # 5.97 X10^3/uL (2.7-7.7); Neutrophil % 72.3 % (47-70); Platelet Count 261 K/mm3 (150-450); RBC Distribution Width CV 13.5 % (11.6-14.6); RBC Distribution Width SD 45.8 fl (35.1-43.9); Red Blood Count 5.07 M/mm3 (4.6-6.2); White Blood Count 8.3 K/mm3 (4.4-11.0)
--- NOTE | 2021-08-06 09:40 | PCM.PROGNOTE ---
Subjective Subjective Patient was seen this morning for follow up on left foot. He relates he is doing well, he has been ambulating without issues. He feels ready to go home. No complaints of fever, chills, nausea or vomiting. Objective Data Objective Data Vital Signs: Vital Signs Temp Pulse Resp BP Pulse Ox 97.5 F L 70 18 132/80 H 95 08/06/21 08:40 08/06/21 09:23 08/06/21 08:40 08/06/21 09:23 08/06/21 08:40 Oxygen Delivery Method Room Air Weight: 93.9 kg Body Mass Index (BMI) 25.9 Intake & Output: Intake and Output for Last 24 Hours 08/04/21 08/05/21 08/06/21 23:59 23:59 23:59 Intake Total 112 / 112 586.25 / 586.25 50 / 50 Balance 112 / 112 586.25 / 586.25 50 / 50 Lab / Micro Data Result Diagrams: 08/06/21 09:13 08/05/21 06:36 Labs: Laboratory Results - last 24 hr 08/05/21 09:40: S.aureus Protein A PCR NEGATIVE, MRSA (PCR) Negative 08/06/21 09:13: WBC 8.3, RBC 5.07, Hgb 15.5, Hct 46.5, MCV 91.7, MCH 30.6, MCHC 33.3, RDW Std Deviation 45.8 H, RDW Coeff of Aydin 13.5, Plt Count 261, MPV 10.2, Immature Gran % (Auto) 0.500, Neut % (Auto) 72.3 H, Lymph % (Auto) 16.4 L, [place] % (Auto) 7.9, Eos % (Auto) 2.5, Baso % (Auto) 0.4, Absolute Neuts (auto) 6.0, Absolute Lymphs (auto) 1.35, Nucleated RBC % 0 Micro: Microbiology 08/05/21 07:45 Wound - Left Foot Gram Stain - Final Physical Exam Const alert, oriented x3 and no apparent distress Extremity Extremity Narrative: There is noted to be an open wound to the dorsal central foot down to subcutaneous tissue which is healing, there is no fluctuance, no purulence present, There is some localized mild erythema around the wound, but otherwise significant improvement noted to the left foot, there is some mild edema around the wound on the left foot, but otherwise no edema, there is some ecchymosis to the central toes on the left foot. CFT < 2 seconds to all toes on the left foot with no evidence of ischemia noted to the left foot, no ankle or leg edema, no calf pain is present. Assessment & Plan Assessment/Plan (1) Infected hematoma: (2) Cellulitis of left foot: PLAN: Re-evaluation performed. Reviewed diagnostic data. Significant improvement noted to left foot. Changed dressing - applied betadine solution, packed Iodoform, and applied overlying gauze, kerlix and rupert dressing. Change daily using betadine soln, gauze and rupert dressing. Cleanse with normal saline solution with each dressing change. Reviewed avaible culture results so far - spoke with Dr. Henao and plan is for patient to be discharged home today with Levaquin orally. We will continue to follow the culture results, and patient will follow up with me with on Sunday this coming week in the office, sooner if needed.
[2021-08-06 10:06] LABS: Anion Gap 8 (5-15); BUN 18 mg/dL (7-18); BUN/Creat Ratio 14.2 RATIO (10-20); Calcium,Total 8.6 mg/dL (8.5-10.1); Chloride 108 mmol/L (98-107); Creatinine, Serum 1.27 mg/dL (0.70-1.30); EST Glomerular Filtration Rate 60 mL/min (>60); Est Glom Filt Rate - Afr Amer 73 mL/min (>60); Estimated Creatinine Clearance 67.46 ml/min; Glucose 136 mg/dL (74-106); Potassium 3.7 mmol/L (3.5-5.1); Sodium Level 139 mmol/L (136-145)
--- NOTE | 2021-08-06 11:16 | DCINST_ITS ---
Discharge Instructions Activity Weight Bearing Status: - (Limit weightbearing on the left foot as much as possible.) Keep extremity elevated above heart level: - (Keep left foot elevated using pillows as much as possible.) Dressing / Incision Call your doctor if your incision/area has: Increased Pain/ Swelling, Increased Redness and Foul Smelling Discharge Call your doctor if you observe: Fever of 101 or Higher, Calf discomfort and Uncontrolled pain Follow Up Care Please Follow Up With: Jovanni Duong DPM Test Results: Test results from this visit will be discussed in further detail at your follow-up appointment, if applicable. Discharge Plan Admission Admit Date/Time: 08/04/21 22:27 Primary Reason for Your Visit: LLE Cellulitis Attending Provider: Jeannette Henao Primary Care Provider: Sneha Calderon Consulting Providers: Jovanni Duong Discharge Orders/Prescriptions Prescriptions: New povidone-iodine [Betadine Swabsticks] 10 % swab 1 applic topical DAILY Qty: 14 RF: 0 Saline Wound Wash 0.9 % solution 10 - 20 ml miscellaneous DAILY Qty: 210 RF: 0 (DME) gauze bandage 4 X 4 sponge See Rx Instructions .ROUTE .MEDSUPPLY Qty: 1200 RF: 0 (DME) Kerlix 4 1/2 X 147 bandage See Rx Instructions .ROUTE .MEDSUPPLY Qty: 48 RF: 0 (DME) Kerlix 4 1/2 X 147 bandage See Rx Instructions .ROUTE .MEDSUPPLY Qty: 5 RF: 0 (DME) gauze bandage 4 X 4 sponge 2 ea topical DAILY Qty: 30 RF: 0 levofloxacin 750 mg tablet 750 mg PO DAILY Qty: 5 RF: 0 Continued pravastatin 40 MG tablet 40 mg PO DAILY RF: 0 amiodarone 200 MG tablet 200 mg PO BID RF: 0 tamsulosin 0.4 MG capsule 0.4 mg PO BID RF: 0 metoprolol succinate 25 MG tablet extended release 24 hr 25 mg PO DAILY RF: 0 fluticasone propionate 16 GM spray,suspension 1 spray INHALATION DAILY RF: 0 quetiapine 200 MG tablet extended release 24 hr 200 mg PO QHS RF: 0 aspirin 81 mg Tablet 81 mg PO DAILY RF: 0 metoprolol succinate 25 mg tablet extended release 24 hr 12.5 mg PO QHS RF: 0 Discontinued cephalexin 500 MG capsule 500 mg PO Q12 RF: 0 Referrals / Follow Up: Sneha Calderon DO [Primary Care Provider] - Within 2 Weeks Jovanni Duong DPM [STAFF PHYSICIAN] - See Referral Note (Follow up with Dr. Duong at the [facility] on Sunday08/09/2021 at 11:45am, follow up sooner if needed.) Disposition Disposition (needs filled in before D/C Order can be placed): Home, Self Care
[2021-08-06 12:27] VITALS: BP 142/75; PULSE 63; RESP 18; TEMP 36.4; O2SAT 95
--- NOTE | 2021-08-06 13:44 | DS.PCM_ITS ---
Documented by User: Orion JAMES 08/06/21 13:53 Providers Date of Admission: 08/04/21 Primary Care Physician: Dr. Sneha Calderon, Consultations 08/04/21 23:09 Consult: Podiatry Routine Consulting Provider: Jovanni Duong Reason for Consult: Left foot swelling EMERGENT Consult: No MD Notified: Yes Date Notified: 08/05/21 Time Notified: 06:42 Method of Notification: Verbal Reason For Visit: CELLULITIS Diagnosis Discharge Diagnosis (1) Infected hematoma: Status: Acute Code(s): T14.8XXA - Other injury of unspecified body region, initial encounter; L08.9 - Local infection of the skin and subcutaneous tissue, unspecified (2) Cellulitis of left foot: Status: Acute Code(s): L03.116 - Cellulitis of left lower limb Medications at Discharge Home Medications amiodarone 200 mg PO BID 09/21/20 fluticasone propionate 1 spray INHALATION DAILY 09/21/20 metoprolol succinate 25 mg PO DAILY 09/21/20 pravastatin 40 mg PO DAILY 09/21/20 quetiapine 200 mg PO QHS 09/21/20 tamsulosin 0.4 mg PO BID 09/21/20 aspirin 81 mg PO DAILY 08/04/21 metoprolol succinate 12.5 mg PO QHS 08/04/21 doxycycline monohydrate 100 mg PO BID #10 cap 08/06/21 gauze bandage #1200 ea 08/06/21 gauze bandage #30 ea 08/06/21 gauze bandage [Kerlix] #48 ea 08/06/21 gauze bandage [Kerlix] #5 ea 08/06/21 povidone-iodine [Betadine Swabsticks] 1 applic TOPICAL DAILY #14 ea 08/06/21 sodium chloride [Saline Wound Wash] 10 - 20 ml MISCELLANEOUS DAILY #210 ml 08/06/21 Hospital Course Summary of Care Provided Minutes Spent on Discharge: 35 Hospital Course: Disposition: Patient to discharge home with outpatient follow- up with Dr. Duong. 1) left lower extremity cellulitis secondary to infected hematoma Patient was admitted on 08/04/2021 with cellulitis to the left lower extremity secondary to infected hematoma. Patient was initiated on Zosyn and clindamycin and was assessed by podiatry. Dr. duong appropriately debrided the wound and cleaned the infected area. Patient is to have normal dressing changes daily and follow-up with Dr. Stone on the morning of 08/09/2021. Patient was also discharged on doxycycline 100 mg p.o. twice daily which he is to take for 5 more days. Patient is to continue chronic medications for other medical conditions. Patient seen by Orion Bustos PA-C, under the supervision of Dr. Henao. Physical Exam Narrative Patient is a 66-year-old male comfortably resting in a chair, alert and orient x3. Patient reports left lower extremity pain and swelling have improved from admission. Denies development of any new symptoms overnight. Does not appear in acute distress. Const alert, oriented x3 and no apparent distress HEENT normocephalic, head/scalp atraumatic and hearing grossly normal bilaterally Eyes PERRL, EOMs intact bilaterally and conjunctivae normal Neck no lymphadenopathy, supple and no JVD Resp normal respiratory effort, no retractions, no use of accessory muscles and clear to auscultation bilaterally Cardio regular rate, regular rhythm, no murmurs and no JVD GI normal to inspection, nondistended, normoactive bowel sounds, soft to palpation and non-tender Extremity Extremity Narrative: Left lower extremity has been wrapped in Yobany bandages. Skin no rashes or lesions noted, no wounds and skin turgor normal Neuro CN's II-XII intact bilaterally Psych affect normal Weight / BMI Weight Weight: 207 lb 0.225 oz Body Mass Index (BMI) 25.9 ABG / Lab / Microbiology Data Result Diagrams: 08/06/21 09:13 08/06/21 09:13 Laboratory: Laboratory Results - last 24 hr 08/06/21 09:13: WBC 8.3, RBC 5.07, Hgb 15.5, Hct 46.5, MCV 91.7, MCH 30.6, MCHC 33.3, RDW Std Deviation 45.8 H, RDW Coeff of Aydin 13.5, Plt Count 261, MPV 10.2, Immature Gran % (Auto) 0.500, Neut % (Auto) 72.3 H, Lymph % (Auto) 16.4 L, [place] % (Auto) 7.9, Eos % (Auto) 2.5, Baso % (Auto) 0.4, Absolute Neuts (auto) 6.0, Absolute Lymphs (auto) 1.35, Nucleated RBC % 0 08/06/21 09:13: Sodium 139, Potassium 3.7, Chloride 108 H, Carbon Dioxide 23.0, Anion Gap 8, BUN 18, Creatinine 1.27, Estim Creat Clear Calc 67.46, Est GFR (MDRD) Af Amer 73, Est GFR (MDRD) Non-Af 60, BUN/Creatinine Ratio 14.2, Glucose 136 H, Calcium 8.6 Microbiology: Microbiology 08/05/21 07:45 Wound - Left Foot Gram Stain - Final 08/05/21 07:45 Wound - Left Foot Wound Culture - Preliminary No growth-Final to follow D/C Instructions Weight Bearing Status: - (Limit weightbearing on the left foot as much as possible.) Keep extremity elevated above heart level: - (Keep left foot elevated using pillows as much as possible.) Call your doctor if your incision/area has: Increased Pain/ Swelling, Increased Redness and Foul Smelling Discharge Call your doctor if you observe: Fever of 101 or Higher, Calf discomfort and Uncontrolled pain Please Follow Up With: Jovanni Duong, DPKirby When: Follow up with Dr. Duong at the [facility] on Sunday08/09/2021 at 11:45am, follow up sooner if needed. [facility] [address], [place] [address] Office number: [phone] Duong over weekend or after hours: [phone] or [phone] Meaningful Use Info Meaningful Use Diagnoses (Choose all that apply): None applicable Discharge Plan Admission Admit Date/Time: 08/04/21 22:27 Primary Reason for Your Visit: LLE Cellulitis Attending Provider: Jeannette Henao Primary Care Provider: Sneha Calderon Consulting Providers: Jovanni Duong Discharge Orders/Prescriptions Prescriptions: New povidone-iodine [Betadine Swabsticks] 10 % swab 1 applic topical DAILY Qty: 14 RF: 0 Saline Wound Wash 0.9 % solution 10 - 20 ml miscellaneous DAILY Qty: 210 RF: 0 (DME) gauze bandage 4 X 4 sponge See Rx Instructions .ROUTE .MEDSUPPLY Qty: 1200 RF: 0 (DME) Kerlix 4 1/2 X 147 bandage See Rx Instructions .ROUTE .MEDSUPPLY Qty: 48 RF: 0 (DME) Kerlix 4 1/2 X 147 bandage See Rx Instructions .ROUTE .MEDSUPPLY Qty: 5 RF: 0 (DME) gauze bandage 4 X 4 sponge 2 ea topical DAILY Qty: 30 RF: 0 doxycycline monohydrate 100 mg capsule 100 mg PO BID Qty: 10 RF: 0 Continued pravastatin 40 MG tablet 40 mg PO DAILY RF: 0 amiodarone 200 MG tablet 200 mg PO BID RF: 0 tamsulosin 0.4 MG capsule 0.4 mg PO BID RF: 0 metoprolol succinate 25 MG tablet extended release 24 hr 25 mg PO DAILY RF: 0 fluticasone propionate 16 GM spray,suspension 1 spray INHALATION DAILY RF: 0 quetiapine 200 MG tablet extended release 24 hr 200 mg PO QHS RF: 0 aspirin 81 mg Tablet 81 mg PO DAILY RF: 0 metoprolol succinate 25 mg tablet extended release 24 hr 12.5 mg PO QHS RF: 0 Discontinued cephalexin 500 MG capsule 500 mg PO Q12 RF: 0 Referrals / Follow Up: Sneha Calderon DO [Primary Care Provider] - Within 2 Weeks Jovanni Duong DPM [STAFF PHYSICIAN] - See Referral Note (Follow up with Dr. Duong at the [facility] on Sunday08/09/2021 at 11:45am, follow up sooner if needed.) Disposition Disposition (needs filled in before D/C Order can be placed): Home, Self Care Documented by User: Dr. Jeannette Henao DO 08/06/21 14:04 Providers Date of Admission: 08/04/21 Reason For Visit: CELLULITIS Medications at Discharge Home Medications amiodarone 200 mg PO BID 09/21/20 fluticasone propionate 1 spray INHALATION DAILY 09/21/20 metoprolol succinate 25 mg PO DAILY 09/21/20 pravastatin 40 mg PO DAILY 09/21/20 quetiapine 200 mg PO QHS 09/21/20 tamsulosin 0.4 mg PO BID 09/21/20 aspirin 81 mg PO DAILY 08/04/21 metoprolol succinate 12.5 mg PO QHS 08/04/21 doxycycline monohydrate 100 mg PO BID #10 cap 08/06/21 gauze bandage #1200 ea 08/06/21 gauze bandage #30 ea 08/06/21 gauze bandage [Kerlix] #48 ea 08/06/21 gauze bandage [Kerlix] #5 ea 08/06/21 povidone-iodine [Betadine Swabsticks] 1 applic TOPICAL DAILY #14 ea 08/06/21 sodium chloride [Saline Wound Wash] 10 - 20 ml MISCELLANEOUS DAILY #210 ml 08/06/21 Hospital Course Operations None Procedures - (Incision and drainage left foot hematoma) Summary of Care Provided Minutes Spent on Discharge: 32 Hospital Course: This patient was seen in conjunction with ERIKA Mayo. The following is representation my independent history and physical examination. Please see below for addendum the above. Mr. Villanueva is a 66-year-old white male who presented to the emergency department on 08/04/2021 with a 1/2-week history of progressively worsening left foot erythema and wound. On 07/01/2021 the patient saw his PCP because of symptoms in his left foot and was given an IM shot in his buttocks and placed on Bactrim. The patient reports that while he is on Bactrim the left foot swelling worsened and progressively accelerated into his left ankle. He denied any pain except tenderness when he pressed on the dorsum of his left foot. He had been able to walk on his foot but was having intermittent pain with that. He was taken off Eliquis approximately a week to 2 weeks prior to his presentation. He was seen by podiatry and an I&D of the area was performed in the dorsum central foot was debrided minimally where a hematoma to the base of the wound was found and evacuated with side to side compression. Hemostasis was achieved and no anesthesia was needed. The area was packed with gauze and an Yobany bandage was placed at that time. On admission he was placed on Unasyn and clindamycin but this was discontinued and he was placed on Zosyn. Cultures of the expressed material were sent and Gram stain showed no organisms with preliminary cultures being unremarkable. He was discontinued on doxycycline to complete a 7-day cour se and he will have follow-up with Dr. Duong in the office early next week. He was instructed in wound care and dressing technique prior to discharge by podiatry. He may maintain full weightbearing status on the foot. He was instructed to follow-up with his PCP in 1 to 2 weeks. Prescriptions for his doxycycline and wound materials were sent to the pharmacy. Discharge diagnoses: Infected hematoma dorsum of left foot Cellulitis of left foot PAF Hypertension Hyperlipidemia CAD BPH Compensated HFrEF Physical Exam Const alert, oriented x3, no apparent distress and average body habitus Constitutional Narrative: Middle-aged white male lying in bed resting comfortably, nontoxic, very pleasant, appears comfortable General Appearance: cooperative, comfortable, well kempt and well developed Orientation / Consciousness: awake Exam Limitations: no limitations HEENT normocephalic, head/scalp atraumatic, hearing grossly normal bilaterally, moist oral mucous membranes and oropharynx normal Eyes PERRL, EOMs intact bilaterally and conjunctivae normal Eyes Narrative: No scleral icterus Neck no lymphadenopathy, supple and no JVD Neck Narrative: Trachea midline, no thyroid enlargement Resp normal respiratory effort, no retractions, no use of accessory muscles and clear to auscultation bilaterally Auscultation: Negative for crackles, rales, rhonchi or wheezes Cardio regular rate, regular rhythm, S1 normal heart sound, S2 normal heart sound, no murmurs, no rub, no gallops, no clicks and no JVD GI normal to inspection, nondistended, normoactive bowel sounds, soft to palpation, non-tender and non-distended Extremity no clubbing, cyanosis or edema Extremity Narrative: Left dorsum of foot wound noted with decreasing erythema an d no significant drainage upon reevaluation with forest resources professor Skin no rashes or lesions noted, No no wounds, skin turgor normal and no jaundice Skin Narrative: See extremity Neuro oriented x3, CN's II-XII intact bilaterally, moves all extremities and no focal motor deficits Sensorium / Orientation: awake and alert Speech: speech normal Motor Exam: strength 5/5 throughout Psych affect normal ABG / Lab / Microbiology Data Result Diagrams: 08/06/21 09:13 08/06/21 09:13 Discharge Plan Admission Admit Date/Time: 08/04/21 22:27 Primary Reason for Your Visit: LLE Cellulitis Attending Provider: Jeannette Henao Primary Care Provider: Sneha Calderon Consulting Providers: Jovanni Duong Discharge Orders/Prescriptions Prescriptions: New povidone-iodine [Betadine Swabsticks] 10 % swab 1 applic topical DAILY Qty: 14 RF: 0 Saline Wound Wash 0.9 % solution 10 - 20 ml miscellaneous DAILY Qty: 210 RF: 0 (DME) gauze bandage 4 X 4 sponge See Rx Instructions .ROUTE .MEDSUPPLY Qty: 1200 RF: 0 (DME) Kerlix 4 1/2 X 147 bandage See Rx Instructions .ROUTE .MEDSUPPLY Qty: 48 RF: 0 (DME) Kerlix 4 1/2 X 147 bandage See Rx Instructions .ROUTE .MEDSUPPLY Qty: 5 RF: 0 (DME) gauze bandage 4 X 4 sponge 2 ea topical DAILY Qty: 30 RF: 0 doxycycline monohydrate 100 mg capsule 100 mg PO BID Qty: 10 RF: 0 Continued pravastatin 40 MG tablet 40 mg PO DAILY RF: 0 amiodarone 200 MG tablet 200 mg PO BID RF: 0 tamsulosin 0.4 MG capsule 0.4 mg PO BID RF: 0 metoprolol succinate 25 MG tablet extended release 24 hr 25 mg PO DAILY RF: 0 fluticasone propionate 16 GM spray,suspension 1 spray INHALATION DAILY RF: 0 quetiapine 200 MG tablet extended release 24 hr 200 mg PO QHS RF: 0 aspirin 81 mg Tablet 81 mg PO DAILY RF: 0 metoprolol succinate 25 mg tablet extended release 24 hr 12.5 mg PO QHS RF: 0 Discontinued cephalexin 500 MG capsule 500 mg PO Q12 RF: 0 Referrals / Follow Up: Sneha Calderon, [Primary Care Provider] - Within 2 Weeks Jovanni Duong DPM [STAFF PHYSICIAN] - See Referral Note (Follow up with Dr. Duong at the [facility] on Sunday08/09/2021 at 11:45am, follow up sooner if needed.) Disposition Disposition (needs filled in before D/C Order can be placed): Home, Self Care Charges/Coding Visit Charges Inpatient E&M: 20160 Disch Hosp
== END 2021-08-06 12:45 | disposition home or self-care (01) | DRG 571 ==
LOC: ED 22:04 → MS2 22:42
PROVIDERS: Physician Assistant; Podiatrist; Admitting Provider Hospitalist; Emergency Provider Emergency Medicine; PCP Family Medicine; Visit Provider Internal Medicine
DX: L03.116 Cellulitis of left lower limb (principal); I47.2 Ventricular tachycardia; I50.22 Chronic systolic (congestive) heart failure; S90.32XA Contusion of left foot, initial encounter; X58.XXXA Exposure to other specified factors, initial encounter; Y93.9 Activity, unspecified; Y92.9 Unspecified place or not applicable; L97.529 Non-pressure chronic ulcer of other part of left foot with unspecified severity; E78.5 Hyperlipidemia, unspecified; H91.93 Unspecified hearing loss, bilateral; I11.0 Hypertensive heart disease with heart failure; I25.10 Atherosclerotic heart disease of native coronary artery without angina pectoris; I25.2 Old myocardial infarction; I48.0 Paroxysmal atrial fibrillation; N40.0 Benign prostatic hyperplasia without lower urinary tract symptoms; Z79.82 Long term (current) use of aspirin; Z95.0 Presence of cardiac pacemaker; Z79.899 Other long term (current) drug therapy
CPT/HCPCS: 36415; 73630; 80048; 85025; 85652; 86140; 87070; 87075; 87205; 87640; 99285; J7040; J7050; A4216; J0295

== ENCOUNTER → 2022-01-19 | Outpatient (CLI) | payer MEDICARE, SELFPAY ==
[2022-01-19 11:18] LABS: Absolute Lymphocyte Count 2.49 X10^3/uL (0.83-4.51); Absolute Neutrophil Count 5.8 X10^3/uL (2.0-7.7); Basophil# 0.04 X10^3/uL; Basophil% 0.4 % (0-1); Eosinophil# 0.22 X10^3/uL; Eosinophils% 2.4 % (0-5); Hematocrit 50.9 % (40-54); Hemoglobin 16.4 g/dL (13.0-16.5); Lymphocyte # 2.49 X10^3/ul (0.83-4.51); Lymphocyte % 26.9 % (19-41); Mean Corp Hgb Conc 32.2 g/dL (32-36); Mean Corpuscular Hgb 30.4 pg (27.0-32.0); Mean Corpuscular Volume 94.4 fL (80-94); Mean Platelet Vol. 10.3 fl (6.2-12.0); Monocyte# 0.72 X10^3/uL; Monocyte% 7.8 % (0-10); NRBC Flagged by Analyzer 0 % (0-5); Neutrophil # 5.75 X10^3/uL (2.7-7.7); Platelet Count 274 K/mm3 (150-450); RBC Distribution Width CV 13.4 % (11.6-14.6); RBC Distribution Width SD 46.8 fl (35.1-43.9); Red Blood Count 5.39 M/mm3 (4.6-6.2); White Blood Count 9.3 K/mm3 (4.4-11.0)
[2022-01-19 11:45] LABS: AST(SGOT) 50 U/L (15-37); Alanine Aminotransfer ALT/SGPT 65 U/L (16-61); Albumin, Serum 3.6 g/dL (3.2-5.0); Alkaline Phosphatase 101 U/L (45-117); Anion Gap 3 (5-15); BUN 16 mg/dL (7-18); BUN/Creat Ratio 15.7 RATIO (10-20); Bilirubin, Direct 0.25 mg/dL (0.00-0.30); Calcium,Total 8.3 mg/dL (8.5-10.1); Chloride 104 mmol/L (98-107); Cholesterol 163 mg/dL (200); Creatinine, Serum 1.02 mg/dL (0.70-1.30); EST Glomerular Filtration Rate 77 mL/min (>60); Est Glom Filt Rate - Afr Amer 94 mL/min (>60); Globulin 3.4 g/dL (2.2-4.2); Glucose 102 mg/dL (74-106); High Density Lipoprotein 60 mg/dL; Potassium 4.3 mmol/L (3.5-5.1); Sodium Level 137 mmol/L (136-145); Thyroid Stim Hormone (TSH) 3.86 uIU/mL (0.358-3.74); Triglycerides 85 mg/dL; Very Low Density Lipoprotein 17 mg/dL (5-40)
== END | disposition home or self-care (01) ==
LOC: LAB 10:41
PROVIDERS: PCP Family Medicine; Referring Provider Family Medicine; Visit Provider Family Medicine
DX: I10 Essential (primary) hypertension (principal); E78.5 Hyperlipidemia, unspecified; I49.9 Cardiac arrhythmia, unspecified
CPT/HCPCS: 36415; 80048; 80061; 80076; 84443; 85025

== ENCOUNTER 2022-10-11 04:51 | Emergency (ER) | payer MEDICARE, SELFPAY ==
[2022-10-11 04:53] VITALS: BP 144/83; PULSE 74; RESP 18; TEMP 36; O2SAT 98; BMI 25.5
--- NOTE | 2022-10-11 05:09 | RAD_ITS ---
INDICATION: sore throat EXAMINATION/TECHNIQUE: X-RAY - XR Neck Soft Tissue: Frontal and lateral views COMPARISON: None. FINDINGS: SOFT TISSUES: No significant soft tissue swelling. Vascular calcifications noted. EPIGLOTTIS: No pathologic thickening or enlargement. PROXIMAL AIRWAY: Grossly patent. BONES: Skeletal degenerative changes with straightening of cervical lordosis. Intervertebral osseous fusion lower cervical spine. LUNGS: Incompletely imaged opacity overlying lower aspect of right upper lung. RAD/Neck for Soft Tissue IMPRESSION: No acute findings within the neck. Partially imaged right lung opacity versus superimposed shadows. Recommend dedicated chest x-ray. Electronically Signed: John Rogers MD at 5:46 EST ,
--- NOTE | 2022-10-11 05:10 | EDS_ITS ---
HPI History of Present Illness Chief Complaint: General Illness Detail of Chief Complaint: COVID for last 9 days with a sore throat. Informant: patient Onset/Context/Timing Onset: Days Context: Gradual Onset Timing: Continuous Current Severity: Mild Maximum Severity: Moderate Narrative Narrative: 67-year-old male history of prior A. fib, hypertension and IA. He was diagnosed with COVID about 8 days ago. States a sore throat and earache. His chronic cough. He is able to swallow but is uncomfortable. He denies any nausea vomiting or diarrhea. His fever and chills have resolved. He has been vaccinated and boosted against COVID. He denies any significant shortness of breath. Prior similar symptoms: Yes Recent Illness/Hospitalization: No PFSH PFSH Medical History Atrial fibrillation Cellulitis of left foot COVID Hearing loss, left Hearing loss, right Hypertension Infected hematoma Myocardial infarct Non-smoker Home Medications amiodarone 200 mg tablet 200 mg PO BID HR 09/21/20 [History Last Taken 08/04/21] fluticasone propionate 50 mcg/actuation nasal spray,suspension 1 spray inhalation DAILY congestion 09/21/20 [History Last Taken 08/03/21] metoprolol succinate 25 mg tablet,extended release 24 hr 25 mg PO DAILY HR 09/21/20 [History Last Taken 08/04/21] pravastatin 40 mg tablet 40 mg PO DAILY cholesterol 09/21/20 [History Last Taken 08/03/21] quetiapine 200 mg tablet,extended release 24 hr 200 mg PO QHS sleep 09/21/20 [History Last Taken 08/03/21] tamsulosin 0.4 mg capsule 0.4 mg PO BID BPH 09/21/20 [History Last Taken 08/03/21] aspirin 81 mg tablet 81 mg PO DAILY heart health 08/04/21 [History Last Taken 08/04/21] metoprolol succinate 25 mg tablet,extended release 24 hr 12.5 mg PO QHS HR 08/04/21 [History Last Taken 08/03/21] doxycycline monohydrate 100 mg capsule 100 mg PO BID #10 caps 08/06/21 [Rx Last Taken Unknown] gauze bandage 4 1/2 X 147 (Kerlix) #48 ea 08/06/21 [Rx Last Taken Unknown] gauze bandage 4 1/2 X 147 (Kerlix) #5 ea 08/06/21 [Rx Last Taken Unknown] gauze bandage 4 X 4 sponge #1,200 ea 08/06/21 [Rx Last Taken Unknown] gauze bandage 4 X 4 sponge #30 ea 08/06/21 [Rx Last Taken Unknown] povidone-iodine 10 % topical swab (Betadine Swabsticks) 1 applic topical DAILY #14 ea 08/06/21 [Rx Last Taken Unknown] sodium chloride 0.9 % solution (Saline Wound Wash) 10 - 20 ml miscellaneous DAILY #210 mL 08/06/21 [Rx Last Taken Unknown] Allergy/AdvReac Type Severity Reaction Status Date / Time No Known Allergies Allergy Verified 10/11/22 04:53 Family History Other Diabetes TIA (transient ischemic attack) Surgical History History of hip surgery History of permanent cardiac pacemaker placement Social History Smoking Status: Never smoker ROS ROS ED ROS Narrative Sore throat. Cough. Earache. Review of Systems ROS Unobtainable: Denies due to encephalopathy Constitutional Constitutional ED: Denies chills, fever(s) or subjective Eyes Eyes: Denies blurry vision ENT ENT ED: Reports ear pain and sore throat Cardiovascular Cardiovascular: Denies chest pain Respiratory/Chest Respiratory/Chest: Reports cough; Denies dyspnea Gastrointestinal Gastrointestinal: Denies abdominal pain, constipation, diarrhea, melena, nausea or vomiting Genitourinary Genitourinary ED: Denies dysuria or hematuria Musculoskeletal Musculoskeletal: Denies arthralgias Integumentary Denies abscess Neurologic Neurologic: Denies headache(s) Psychiatric Psychiatric: Denies anxiety Endocrine Endocrinology: Denies cold intolerance Hematologic/Lymphatic Hematologic/Lymphatic: Reports none Allergic/Immunologic Allergic/Immunologic ED: Denies mouth swelling, tongue swelling or urticaria EXAM Physical Exam Narrative Exam Narrative: Well-appearing 67-year-old male. Vital signs stable afebrile. Pulse ox 98% on room air no signs hypoxia. He is lying in bed. Head elevated about 45 degrees. H EENT exam unremarkable. TMs normal. Posterior pharynx tissue looks good. There is no significant swelling or redness. No exudate. His uvula is normal size. No trouble swallowing or breathing. No stridor or drooling. [place] glass of water he drank it without any difficulty. Neck nontender no lymphadenopathy. Trachea midline. Lungs clear to auscultation. Heart regular rhythm rate about 70 no murmur. Abdomen soft nontender. Moving all 4 extremities. Calves are nontender without edema or cords. Neurologically is awake and alert with no focal motor deficits. Very benign appearing exam. Const Vital Signs: 10/11/22 04:53 10/11/22 04:59 Temperature 96.8 F L Temperature Source Temporal Pulse Rate 74 Respiratory Rate 18 Respiratory Effort Normal Respiratory Pattern Normal Blood Pressure 144/83 H Blood Pressure Mean 103 Pulse Ox 98 Oxygen Delivery Method Room Air Positive well nourished and well developed; Negative for obese, cachectic, contractures or unkempt General Appearance ED: well developed and NAD; Negative for unkempt, cachectic, contractures, cyanotic or diaphoretic Nutritional Appearance: Negative for cachectic or obese HEENT Reports TM's clear and moist mucous membranes; Denies dry mucous membranes Negative for trauma or tenderness Tympanic Membrane ED: Yes TM's clear Mouth ED: No dry mucous membranes Mouth: No dry mucous membranes Eyes PERRL and EOMs intact bilaterally General Eye ED: Negative for pale conjunctiva or scleral icterus Neck no lymphadenopathy, supple and no JVD General: Negative for tenderness Lymph Lymphatic: Negative for other Chest Wall inspection of chest normal and palpation of chest normal Chest: Negative for other Resp normal respiratory effort and clear to auscultation bilaterally Effort and Inspection: Negative for retractions Auscultation: Negative for rales, rhonchi or wheezes Cardio regular rate, regular rhythm, S1 normal heart sound, S2 normal heart sound and no murmurs Rate: Negative for bradycardia or tachycardic Rhythm: Negative for abnormal rhythm GI normal to inspection, nondistended, normoactive bowel sounds, non-tender, non- distended and no masses Inspection: Negative for abdominal distention Auscultation: normoactive bowel sounds Palpation: soft; Negative for tender or guarding Back/Spine no CVA tenderness General Back: Negative for CVA tenderness Cervical Spine: Negative for cervical spine tenderness Thoracic Spine / Upper Back: Negative for thoracic spinal tenderness Lumbar Spine / Lower Back: Negative for lumbar spinal tenderness Extremity normal to inspection General Extremety ED: Negative for edema or tenderness General Extremity: Negative for edema Neuro oriented x3 and CN's II-XII intact bilaterally Sensorium / Orientation: alert; Negative for orientation impaired, lethargic or stuporous Sensory Exam: sensory level loss detected Motor Exam: strength 5/5 throughout; Negative for general weakness or strength abnormal Psych mental status grossly normal Appearance: Negative for unkempt or other Attitude: No agitated Mood & Affect: Negative for depressed, anxious or tearful Skin no rashes or lesions noted, no wounds and skin turgor normal General Skin Exam: Negative for elasticity normal Lesions: No lesion noted Rashes: No rashes noted Trauma: Negative for abrasion Wounds: Negative for wounds noted MDM MDM MDM Narrative Medical decision making narrative: 59-year-old male on his 8th-day of COVID. Complaining of a sore throat. Exam is benign. Posterior pharynx is normal. There is no exudate. No peritonsillar abscess. No signs of retropharyngeal abscess. There is no drooling or stridor. Again advised water drinking without any difficulty. There is no signs of a peritonsillar abscess. I will obtain a soft tissue of his neck but clinically I do not think this is epiglottitis but that is the patient's concern. Repeat exam patient is doing well at 5:29 AM. He and I went over his neck soft tissue x-rays. He is in no distress to be discharged to home. Plenty of fluids and rest. Warm salt water gargles. Chloraseptic spray. Tylenol Motrin as needed. Follow-up with his doctor if not improving. Return if worse. Radiography Diagnostic Testing: Soft tissue neck x-ray 2 views interpreted by myself shows no acute abnormality. No epiglottitis. No signs of retropharyngeal abscess. No narrowing of the airway. I did go over the films with the patient. He is comfortable being discharged home. Discharge Plan Triage Chief Complaint: General Illness ED Provider: Kaiden Mejia Dx/Rx/DC Orders Clinical Impression: COVID, Pharyngitis Instructions: Human Coronaviruses Prescriptions: No Action pravastatin 40 MG tablet 40 mg PO DAILY amiodarone 200 MG tablet 200 mg PO BID tamsulosin 0.4 MG capsule 0.4 mg PO BID metoprolol succinate 25 MG tablet extended release 24 hr 25 mg PO DAILY fluticasone propionate 16 GM spray,suspension 1 spray INHALATION DAILY quetiapine 200 MG tablet extended release 24 hr 200 mg PO QHS aspirin 81 mg Tablet 81 mg PO DAILY metoprolol succinate 25 mg tablet extended release 24 hr 12.5 mg PO QHS povidone-iodine [Betadine Swabsticks] 10 % swab 1 applic topical DAILY Qty: 14 0RF Rx Instructions: Apply topically to wound on top of the left foot once a day. Saline Wound Wash 0.9 % solution 10 - 20 ml miscellaneous DAILY Qty: 210 0RF Rx Instructions: Use topically to cleanse the wound on the left foot. (DME) gauze bandage 4 X 4 sponge See Rx Instructions .ROUTE .MEDSUPPLY Qty: 1200 0RF Rx Instructions: As directed (DME) Kerlix 4 1/2 X 147 bandage See Rx Instructions .ROUTE .MEDSUPPLY Qty: 48 0RF Rx Instructions: As directed (DME) Kerlix 4 1/2 X 147 bandage See Rx Instructions .ROUTE .MEDSUPPLY Qty: 5 0RF Rx Instructions: Use topically for wound care left foot (DME) gauze bandage 4 X 4 sponge 2 ea topical DAILY Qty: 30 0RF Rx Instructions: Use topically for wound care left foot doxycycline monohydrate 100 mg capsule 100 mg PO BID Qty: 10 0RF Primary Care Provider: Sneha Calderon Referrals: Sneha Calderon, [Primary Care Provider] - 1 Week if not improving Activity Restrictions/Additional Instructions: Your cough and sore throat should progressively start improving. For the sore throat warm salt water gargling. Honey. Plenty of fluids and rest. Tylenol Motrin as needed for body aches. Warm salt water gargling to help with your sore throat. Your x-ray was unremarkable. There is no signs of either a peritonsillar abscess, retropharyngeal abscess nor any signs of epiglottitis. Follow-up with your doctor if not improving. Disposition Disposition: Home, Self Care
== END 2022-10-11 05:39 | disposition home or self-care (01) ==
PROVIDERS: Emergency Provider Emergency Medicine; PCP Family Medicine; Visit Provider Emergency Medicine
DX: U07.1 COVID-19 (principal); I48.91 Unspecified atrial fibrillation; I10 Essential (primary) hypertension; I25.2 Old myocardial infarction; H91.93 Unspecified hearing loss, bilateral; Z95.0 Presence of cardiac pacemaker; Z79.82 Long term (current) use of aspirin; Z79.899 Other long term (current) drug therapy
CPT/HCPCS: 70360; 99282

== ENCOUNTER → 2023-02-06 | Outpatient (CLI) | payer MEDICARE, SELFPAY ==
[2023-02-06 06:41] LABS: Bacteria 0 SEEN /hpf (None Seen); Mucous, Urine 0 SEEN /hpf (<or=2+); Red Blood Cells-Urine 0 SEEN /hpf (0-5); Squamous Epithelial Cells - UA 0 SEEN /hpf (0-5); White Blood Cells 0 SEEN /hpf (0-5)
[2023-02-06 07:26] LABS: Absolute Neutrophil Count 4.3 X10^3/uL (2.0-7.7); Basophil# 0.04 X10^3/uL; Basophil% 0.5 % (0-1); Eosinophil# 0.32 X10^3/uL; Eosinophils% 4.1 % (0-5); Hematocrit 49.8 % (40-54); Hemoglobin 16.2 g/dL (13.0-16.5); Lymphocyte % 29.8 % (19-41); Mean Corp Hgb Conc 32.5 g/dL (32-36); Mean Corpuscular Hgb 30.7 pg (27.0-32.0); Mean Corpuscular Volume 94.5 fL (80-94); Mean Platelet Vol. 10.2 fl (6.2-12.0); Monocyte# 0.72 X10^3/uL; Monocyte% 9.3 % (0-10); NRBC Flagged by Analyzer 0 % (0-5); Neutrophil # 4.31 X10^3/uL (2.7-7.7); Neutrophil % 55.8 % (47-70); Platelet Count 271 K/mm3 (150-450); RBC Distribution Width CV 13.2 % (11.6-14.6); RBC Distribution Width SD 45.9 fl (35.1-43.9); Red Blood Count 5.27 M/mm3 (4.6-6.2); White Blood Count 7.7 K/mm3 (4.4-11.0)
[2023-02-06 07:27] LABS: Color, Urine Yellow (Yellow); Glucose, Dipstick Normal (Normal); Ketone-Dipstick Negative (Negative); Leukocyte Esterase-Dipstick Negative /ul (Negative); Nitrite-Dipstick Negative (Negative); Occult Blood-Urine Negative /ul (Negative); Protein-Dipstick Negative (Negative); Specific Gravity, Urine 1.015 (1.002-1.030); Urine Bilirubin Dipstick Negative (Negative); Urine Clarity Clear (Clear); Urine Urobilinogen Normal (Normal)
[2023-02-06 08:08] LABS: AST(SGOT) 38 U/L (15-37); Alanine Aminotransfer ALT/SGPT 45 U/L (16-61); Albumin, Serum 3.3 g/dL (3.2-5.0); Alkaline Phosphatase 101 U/L (45-117); Anion Gap 4 (5-15); BUN 19 mg/dL (7-18); BUN/Creat Ratio 20.3 RATIO (10-20); Bilirubin, Direct 0.22 mg/dL (0.00-0.30); Calcium,Total 8.4 mg/dL (8.5-10.1); Chloride 105 mmol/L (98-107); Cholesterol 149 mg/dL (200); Creatinine, Serum 0.94 mg/dL (0.70-1.30); EST Glomerular Filtration Rate 85 mL/min (>60); Est Glom Filt Rate - Afr Amer 103 mL/min (>60); Globulin 3.2 g/dL (2.2-4.2); Glucose 98 mg/dL (74-106); High Density Lipoprotein 58 mg/dL; PSA,Total- Diagnostic 2.68 ng/mL (0.0-4.0); Potassium 4.3 mmol/L (3.5-5.1); Protein, Total 6.5 g/dL (6.4-8.2); Sodium Level 138 mmol/L (136-145); Thyroid Stim Hormone (TSH) 3.21 uIU/mL (0.358-3.74); Triglycerides 61 mg/dL; Very Low Density Lipoprotein 12 mg/dL (5-40)
== END | disposition home or self-care (01) ==
PROVIDERS: PCP Family Medicine; Referring Provider Family Medicine; Visit Provider Family Medicine
DX: I49.9 Cardiac arrhythmia, unspecified (principal); M06.89 Other specified rheumatoid arthritis, multiple sites; N40.1 Benign prostatic hyperplasia with lower urinary tract symptoms; E03.9 Hypothyroidism, unspecified; J30.9 Allergic rhinitis, unspecified; G47.00 Insomnia, unspecified; I10 Essential (primary) hypertension; E78.5 Hyperlipidemia, unspecified
CPT/HCPCS: 36415; 80048; 80061; 80076; 81001; 84153; 84443; 85025

== ENCOUNTER → 2023-06-26 | Outpatient (CLI) | payer MEDICARE, SELFPAY ==
[2023-06-26 09:09] LABS: Absolute Lymphocyte Count 2.65 X10^3/uL (0.83-4.51); Absolute Neutrophil Count 5.3 X10^3/uL (2.0-7.7); Basophil# 0.05 X10^3/uL; Basophil% 0.5 % (0-1); Eosinophil# 0.26 X10^3/uL; Eosinophils% 2.8 % (0-5); Hematocrit 50.5 % (40-54); Hemoglobin 16.1 g/dL (13.0-16.5); Lymphocyte # 2.65 X10^3/ul (0.83-4.51); Lymphocyte % 28.7 % (19-41); Mean Corp Hgb Conc 31.9 g/dL (32-36); Mean Platelet Vol. 10.2 fl (6.2-12.0); Monocyte% 8.7 % (0-10); NRBC Flagged by Analyzer 0 % (0-5); Neutrophil # 5.34 X10^3/uL (2.7-7.7); Neutrophil % 57.9 % (47-70); Platelet Count 274 K/mm3 (150-450); RBC Distribution Width CV 12.7 % (11.6-14.6); RBC Distribution Width SD 43.7 fl (35.1-43.9); Red Blood Count 5.37 M/mm3 (4.6-6.2); White Blood Count 9.2 K/mm3 (4.4-11.0)
[2023-06-26 09:45] LABS: AST(SGOT) 25 U/L (15-37); Alanine Aminotransfer ALT/SGPT 37 U/L (16-61); Albumin, Serum 3.3 g/dL (3.2-5.0); Alkaline Phosphatase 118 U/L (45-117); Anion Gap 4 (5-15); BUN 22 mg/dL (7-18); BUN/Creat Ratio 24.1 RATIO (10-20); Bilirubin, Direct 0.15 mg/dL (0.00-0.30); Calcium,Total 8.7 mg/dL (8.5-10.1); Chloride 110 mmol/L (98-107); Cholesterol 170 mg/dL (200); Creatinine, Serum 0.91 mg/dL (0.70-1.30); EST Glomerular Filtration Rate 87 mL/min (>60); Est Glom Filt Rate - Afr Amer 106 mL/min (>60); Globulin 3.4 g/dL (2.2-4.2); Glucose 96 mg/dL (74-106); High Density Lipoprotein 48 mg/dL; Potassium 4.2 mmol/L (3.5-5.1); Protein, Total 6.7 g/dL (6.4-8.2); Sodium Level 142 mmol/L (136-145); Thyroid Stim Hormone (TSH) 0.03 uIU/mL (0.358-3.74); Triglycerides 157 mg/dL; Very Low Density Lipoprotein 31 mg/dL (5-40)
== END | disposition home or self-care (01) ==
LOC: LAB 07:58
PROVIDERS: PCP Family Medicine; Referring Provider Family Medicine; Visit Provider Family Medicine
DX: I49.9 Cardiac arrhythmia, unspecified (principal); E03.9 Hypothyroidism, unspecified; I10 Essential (primary) hypertension; E78.5 Hyperlipidemia, unspecified
CPT/HCPCS: 36415; 80048; 80061; 80076; 84443; 85025

== ENCOUNTER 2023-07-16 12:00 | Outpatient (RCR) | payer MEDICARE, SELFPAY ==
--- NOTE | 2023-06-28 11:09 | HP.PTEVAL_ITS ---
Patient's Visit Information Visit Information Visit Information: BONNY VARGHESE is a 68 year old M referred to Physical Therapy by Dr. Sneha Calderon DO with a diagnosis of BPPV. Date of Evaluation: 06/28/23 Physical Therapist: Mars Ramos, ANIAT, OCS, CSCS Visit Plan Frequency: 1-2x /Week Duration: 4-6 Weeks Plan: 1-2x/week x 4-6 as needed for positional ex/treatments for BPPV and then monitor need for further balance intervention baased on FGA Subjective Subjective: My balance is not great. has been that way for years. Room spins when I lie down in bed for years. 2 months ago fell in middle of night for no reason and could barely walk the next morning and was dizzy. Hit his head when he fell. Had CT scan and everything fine. Thinks he dislodged calcium crystals. Had jose as homework which helped a little bit. Eyes move and spin mostly when lie down at night. Also bending over to get drink at water fountain and holds onto wall. Lasts a few seconds. Feels unsteady more often. Is careful with speed of movement. Likes to walk for fitness but has had trouble with allergies and covid in the distant past. lives in mobile home with . Steps to enter which he is careful on. balance got worse more lately and lying down spinning has been there for a long time. Uses walking stick to walk in [place]. Sleeping: [place] Employment: retired. Basic ADLS, : careful but doable. Objective Objective: Walks with slight wid eBOS but I without AD. Steps reciprocal witho ut rail. Trasnfers without UE bed and chair today. Cervical aROm WFL and without pain UE AROM WFL with L slightly compensating at scap. Strength 4/5, no pain. - L hallpike laquita + R hallpike laquita for up trosional nystagmus 14 second duration, treated with modified jose adn then still positive so treated again. Balance/Special Test Scores Functional Gait Assessment Score: 25 % Disability: 16.6700 CATSIB Score (Max score 120 seconds): 98 Dizziness Score: 40 Goals Goal 1:: Abolish dizzyness in bed at night and looking up Goal Time Frame: 4-6 Weeks Goal 2:: Pt feel 100% better with dizzyness and 75% better iwth balance Goal Time Frame: 4-6 Weeks Goal 3:: FGA to limit fall risk Goal Time Frame: 4-6 Weeks Goal 4:: I approp HEP and management Goal Time Frame: 4-6 Weeks Rehabilitation Potential Physical Therapy Diagnosis: vertigo positional and unsteadiness.= causing falls Rehabilitation Potential: Good Anticipated Interventions Patient/Client Instruction: Educate patient on: Condition and Plan of Care For the Purpose of:: To increase tolerance to activity/condition/position and To improve safety Therapeutic Exercise to Include: Balance training Comment: positional For the Purpose of:: To increase tolerance to activity/condition/position, To improve gait and locomotor functions and To improve safety Text: Thank you for the opportunity to evaluate your patient. For Medicare and Medicare HMO plans, please review the plan of care and approve it. It will need to be FAXED BACK to us at [phone] for Medicare purposes. For Medicare only, by signing this I certify the plan of care. Please let me know if there are questions or concerns regarding this plan of care. Physician Signature: Date:
--- NOTE | 2023-07-16 12:16 | HP.PTDCSUM ---
Discharge Summary D/C summary: It has been my pleasure to treat BONNY VARGHESE referred by Dr. Sneha Calderon DO, with the diagnosis of BPPV for a total of 6 visit(s). Discharge Date: 07/16/23 Please see the following information for a summary of their discharge status. Subjective Subjective: No dizzyness and doing strength and balance workout. Coming in four days per week. Activities ar enormal. No f/u with doctor. Overall Improvement % Improvement: 100 Objective Objective/Function: - B hallpike laquita - roll test Goals Goal 1:: Abolish dizzyness in bed at night and looking up Goal Progress: Goal Met Goal 2:: Pt feel 100% better with dizzyness and 75% better iwth balance Goal Progress: Goal Met Goal 3:: FGA to limit fall risk Goal Progress: Goal Met Goal 4:: I approp HEP and management Goal Progress: Goal Met Plan Plan: d/c, Pt doing well with symptoms and will continue working on balance and strength in gym as member. D/C Information d/c sentence: If there are questions or concerns regarding this patient's physical therapy, please feel free to call me at [phone]. Thank you for the referral of this patient. Sincerely, Mars Ramos, DPT, OCS, CSCS Balance/Gait/Functional tests Balance/Special Test Scores Functional Gait Assessment Score: 28 % Disability: 6.6700 CATSIB Score (Max score 120 seconds): 98 Dizziness Score: 0 Improvement % Improvement: 100
--- NOTE | 2023-07-16 12:29 | HP.PTREVAL ---
Re-Evaluation Intro: Dr. Sneha Calderon, DO, It has been my pleasure to treat BONNY VARGHESE over the last 6 visits for BPPV. Please see the progress note below for an update on the physical therapy plan of care! Subjective Subjective: No dizzyness and doing strength and balance workout. Coming in four days per week. Activities ar enormal. No f/u with doctor. Objective Objective/Function: - B hallpike laquita - roll test Plan Plan Plan: d/c, Pt doing well with symptoms and will continue working on balance and strength in gym as member. Balance/Gait/Functional tests Balance/Special Test Scores Functional Gait Assessment Score: 28 % Disability: 6.6700 CATSIB Score (Max score 120 seconds): 98 Dizziness Score: 0 Goals Goals Goal 1:: Abolish dizzyness in bed at night and looking up Goal Time Frame: 4-6 Weeks Goal Progress: Goal Met Goal 2:: Pt feel 100% better with dizzyness and 75% better iwth balance Goal Time Frame: 4-6 Weeks Goal Progress: Goal Met Goal 3:: FGA to limit fall risk Goal Time Frame: 4-6 Weeks Goal Progress: Goal Met Goal 4:: I approp HEP and management Goal Time Frame: 4-6 Weeks Goal Progress: Goal Met Anticipated Interventions Anticipated Interventions Patient/Client Instruction: Educate patient on: Condition and Plan of Care For the Purpose of:: To increase tolerance to activity/condition/position and To improve safety Therapeutic Exercise to Include: Balance training Comment: positional For the Purpose of:: To increase tolerance to activity/condition/position, To improve gait and locomotor functions and To improve safety Re-Evaluation Ending Re-evaluation ending: Please do not hesitate to contact me at [phone] by phone or if you have questions or concerns regarding this new plan of care! Sincerely, Mars Ramos, DPT, OCS, CSCS
== END 2023-07-16 19:00 | disposition home or self-care (01) ==
LOC: PT 12:00
PROVIDERS: PCP Family Medicine; Referring Provider Family Medicine; Visit Provider Family Medicine
DX: H81.10 Benign paroxysmal vertigo, unspecified ear (principal)
CPT/HCPCS: 97110; 97161; 97164; 97530

== ENCOUNTER → 2023-08-13 | Outpatient (CLI) | payer MEDICARE, SELFPAY ==
[2023-08-13 12:48] LABS: T4 Free Direct 1.87 ng/dL (0.76-1.46); Thyroid Stim Hormone (TSH) 0.01 uIU/mL (0.358-3.74)
== END | disposition home or self-care (01) ==
LOC: LAB 11:08
PROVIDERS: PCP Family Medicine; Referring Provider Family Medicine; Visit Provider Family Medicine
DX: E03.9 Hypothyroidism, unspecified (principal)
CPT/HCPCS: 36415; 84439; 84443

== ENCOUNTER → 2023-08-22 | Outpatient (CLI) | payer MEDICARE, SELFPAY ==
--- NOTE | 2023-08-22 08:40 | US_ITS ---
STUDY: THYROID ULTRASOUND REASON FOR EXAM: Male, 68 years old. HYPOTHYROIDISM TECHNIQUE: Ultrasound evaluation of the thyroid was performed with real-time and static hayes-scale imaging. COMPARISON: None. FINDINGS: RIGHT LOBE: The right lobe of the thyroid gland is mildly enlarged and measures 5.4 cm x 2.1 cm x 2.1 cm. There is a mild heterogeneous echotexture. There are no demonstrated solid, cystic or complex lesions. LEFT LOBE: The left lobe of the thyroid gland measures 4.7 cm x 2 cm x 2 cm. There is a mild heterogeneous echotexture. 3 mm x 3 mm x 3 mm cyst in the mid pole of the left lobe of the thyroid. ISTHMUS: The isthmus measures 7 mm. The regional lymph nodes are normal. US/Thyroid IMPRESSION: Mildly enlarged right lobe of the thyroid. Mild heterogeneous echotexture of both lobes of the thyroid. 3 mm x 3 mm x 2 mm cyst in the midpole of the left lobe of the thyroid. Electronically Signed: Salbador Mckay MD at 15:59 EST ,
[2023-08-23 04:07] LABS: Thyroid Peroxidase AB 11 IU/mL (0-34)
== END | disposition home or self-care (01) ==
PROVIDERS: PCP Family Medicine; Referring Provider Family Medicine; Visit Provider Family Medicine
DX: E03.9 Hypothyroidism, unspecified (principal)
CPT/HCPCS: 36415; 76536; 86376

== ENCOUNTER → 2023-08-30 | Outpatient (CLI) | payer MEDICARE, SELFPAY | END | disposition home or self-care (01) | PROVIDERS: PCP Family Medicine | DX: J06.9 Acute upper respiratory infection, unspecified (principal) | CPT/HCPCS: 87635; 87804; 87807; C9803 ==

== ENCOUNTER 2025-03-16 08:58 | Outpatient (RCR) | payer MEDICARE, SELFPAY ==
--- NOTE | 2025-03-16 09:36 | HP.PTEVAL ---
Patient's Visit Information Visit Information Visit Information: BONNY VARGHESE is a 69 year old M referred to Physical Therapy by Dr. Sneha Calderon, DO with a diagnosis of recurrent LBP, trochanteric bursitis. Date of Evaluation: 03/16/25 Physical Therapist: Mars Ramos, DPT, OCS, CSCS Visit Plan Plan: No furthere skilled PT required, reviewed gym workout for completeness and pt doing well with home stretches for bursitis. Pt just wanted to review exercises. Subjective Subjective: Recurrent LBP degeneration x 30 yrs giving pain in R LB. Lateral hip pain is gone now from doing ITB standing stretch 30' x 2 each side. Hip pain is now gone. Back pain is mostly there 60% of time. Doing HP workout and wants to make sure it is appropriate for LB. Activities are normal right now. L achilles brace worn for protection from injury 10 yrs ago. strtches supine lie palms up and leeg across your body 30 Works out 6x/week and legs, upper , core 2x/each Pain R LBP: Pain Intensity (Out of 10): 1 Pain Intensity Range: 0 and 2 Objective Objective: LB AROM flexion mod limited, ext mod limtied, SB min limited. No increased pain from baseline. sensation LE WNL to gross light touch. strength in LE funcitonal without myotomal abnormalities. Transfers I bed and chair. walking wella dn upright. Balance/Special Test Scores Oswestry Low Back Score: 8 Rehabilitation Potential Physical Therapy Diagnosis: poor cofnidence in knowledge of workout addressed today. Anticipated Interventions Text: Thank you for the opportunity to evaluate your patient. For Medicare and Medicare HMO plans, please review the plan of care and approve it. It will need to be FAXED BACK to us at [phone] for Medicare purposes. For Medicare only, by signing this I certify the plan of care. Please let me know if there are questions or concerns regarding this plan of care. Physician Signature: Date:
== END 2025-03-16 19:00 | disposition home or self-care (01) ==
LOC: PT 08:58
PROVIDERS: PCP Family Medicine; Referring Provider Family Medicine; Visit Provider Family Medicine
DX: M70.62 Trochanteric bursitis, left hip (principal)
CPT/HCPCS: 97161